=== PATIENT | female | born 1980 | race Caucasian/White ===

== ENCOUNTER 2016-10-19 08:28 | Emergency (ER) | payer OTHER, MEDICARE ==
--- NOTE | ~2016-10-19 | EKG ---
PATIENT: GUCCI LAW UNIT #: [id number] Ventricular Rate: 106 BPM Atrial Rate: 106 BPM P-R Interval: 138 ms QRS Duration: 74 ms Q-T Interval: 376 ms QTC Calculation(Bezet): 499 ms P [place]: 65 degrees Calculated R [place]: 55 degrees Calculated T [place]: 54 degrees Diagnosis Line: Sinus tachycardia Diagnosis Line: Otherwise normal ECG Diagnosis Line: When compared with ECG of 04-JUN-2009 12:25, Diagnosis Line: Nonspecific T wave abnormality no longer evident Diagnosis Line: in Lateral leads Diagnosis Line: Confirmed by RAIMUNDO MEMBRENO MD ([id number]) on Diagnosis Line: 10/21/2016 12:03:25 AM INTERPRETING MD: TEMI MARIA
--- NOTE | ~2016-10-19 | CT2 ---
[facility] A Service of [facility] RADIOLOGY TEXT RESULTS PATIENT: GUCCI LAW LOCATION: [facility] : 82 UNIT #: [id number] AGE: [address]: Cathryn Medrano SEX: F ORDER DR: [id number] [facility] [address] [place], [place] [address] [id number] E MR#: [id number] Acc #: [id number] NAME: GUCCI LAW. : 1980 SEX: F STUDY DATE/TIME: 10/19/2016 9:39 UNIT: [facility] ROOM: STUDY DESCRIPTION: CT Abd and Pelv W Cont Attending Physician: Cathryn Medrano P.A.-C. Ordering Physician: Cathryn Medrano P.A.-C. Primary Care Physician: No Primary Care Physician MEDICAL IMAGING REPORT This report is preliminary unless electronic signature is present EXAM CT of the abdomen and pelvis with contrast INDICATIONS 35-year-old female with abdominal pain since yesterday. History of pancreatitis and hepatitis C. TECHNIQUE CT scan of the abdomen and pelvis was performed following the administration of oral and IV contrast. Coronal and sagittal reformatted images were obtained. This CT exam was performed with one or more of the following radiation dose reduction techniques: automatic control, adjustment of mA and/or kV according to patient size, and iterative reconstruction. Comparison is made with 09/05/2016. FINDINGS The lung bases are clear. There is stable fatty infiltration of the liver. There is no intrahepatic bile duct dilatation. There is some pneumobilia noted. There is a stent within the common bile duct. There is a scant amount of pericholecystic fluid. There is no ascites. The spleen is upper normal in size. The kidneys are unremarkable. The adrenal glands are unremarkable. The pancreas is unremarkable. There is no ascites. PELVIS: The colon is unremarkable. Previously noted colonic thickening is significantly improved. There is no free fluid. The bone windows are unremarkable. IMPRESSION 1. Stable fatty infiltration of the liver. 2. Stent within the common bile duct. No evidence of biliary ductal dilatation. Small amount of associated pneumobilia. STS. [facility] A Service of [facility] RADIOLOGY TEXT RESULTS PATIENT: GUCCI LAW [id number] 82 UNIT #: [id number] AGE: [address]: Cathryn Medrano SEX: F ORDER DR: 3. Scant pericholecystic fluid. 4. No evidence of ascites. 5. Previously noted colonic wall thickening has significantly improved. Dictated by... Brayan Dowling M.D. THIS IS AN ELECTRONICALLY VERIFIED REPORT Brayan Dowling M.D. at 10/20/2016 10:42 AM EDWIN/eddi TD: 10/20/2016 03:30 JOB #: [id number] MEDICAL IMAGING REPORT COPY
--- NOTE | ~2016-10-19 | CR72 ---
[facility] A Service of [facility] RADIOLOGY TEXT RESULTS PATIENT: GUCCI LAW LOCATION: [facility] : 82 UNIT #: [id number] AGE: [address]: Cathryn Medrano SEX: F ORDER DR: [id number] [facility] [address] [place], [place] [address] [id number] E MR#: [id number] Acc #: [id number] NAME: GUCCI LAW. : 1980 SEX: F STUDY DATE/TIME: 10/19/2016 8:19 UNIT: [facility] ROOM: STUDY DESCRIPTION: CR Chest Single View Portable Attending Physician: Cathryn Medrano P.A.-C. Ordering Physician: Cathryn Medrano P.A.-C. Primary Care Physician: No Primary Care Physician MEDICAL IMAGING REPORT This report is preliminary unless electronic signature is present EXAM Portable chest HISTORY Feels like electricity going through her body with epigastric pain this morning. COMPARISON 06/04/2009. FINDINGS Portable view of the chest was obtained. The heart size and vascularity are normal and the lungs are clear and the bones are unremarkable. IMPRESSION No active disease. Dictated by... Jude Lenz M.D. THIS IS AN ELECTRONICALLY VERIFIED REPORT Jude Lenz M.D. at 10/20/2016 3:06 PM ANTONIETA/eddi TD: 10/20/2016 00:44 JOB #: [id number] MEDICAL IMAGING REPORT COPY
[~2016-10-19 08:28] MED LIST: ALDACTONE25 MG PO; CLEOCIN PO; DULOXETINE HCL60 MG PO; FAMOTIDINE PO; KEFLEX500 MG PO; LASIX20 MG PO; LIBRIUM25 M1 DOB; MULTI VITAMIN1 EACH PO; NICOTINE TRANSD21 MG EXT; NO MEDICATIONS; NORCO 10-325 TA1 TAB PO; PEN-VEE K PO; PHENERGAN25 M1 PO; PROTONIX PO; PROVERA PO; THIAMINE HCL100 M1 DOB; TRAMADOL HCL50 M1 PO; ULTRAM PO; VOLTAREN75 MG PO
[2016-10-19 08:34] LABS: POC - CKMB <1.0 ng/mL (0.0-7.9); POC - TROPONIN <0.05 ng/mL (<=0.05)
[2016-10-19 08:36] LABS: BASOPHIL# 0.1 X10e3 (0-0.3); EOSINOPHIL# 0.2 X10e3 (0-0.7); EOSINOPHIL% 2.6 % (0.0-7.0); HEMATOCRIT 31.7 % (35.0-45.0); HEMOGLOBIN 10.4 gm/dL (12.0-16.0); LYMPHOCYTE# 2.3 X10e3 (1.0-3.5); LYMPHOCYTE% 34.9 % (17.0-45.0); MEAN CELL VOLUME 100.5 FL (83-96); MEAN CORPUSCULAR HGB CONC 32.8 g/dL (30-36); MEAN PLATELET VOLUME 8.5 FL (6.5-11.5); MONOCYTE# 0.6 X10e3 (0-1.0); MONOCYTE% 9.8 % (3.0-12.0); NEUTROPHIL# 3.4 X10e3 (1.5-7.1); NEUTROPHIL% 51.7 % (40-75); PLATELET COUNT 133 X10e3 (140-420); RED BLOOD COUNT 3.15 X10e (3.90-5.30); RED CELL DISTRIBUTION WIDTH 14.8 % (11.0-15.5); WHITE BLOOD COUNT 6.5 X10e3 (4.0-10.5)
[2016-10-19 08:40] LABS: DIFF IND NO
[2016-10-19 08:42] LABS: AMPHETAMINE NEG (NEG); BARBITURATES NEG (NEG); BENZODIAZEPINES NEG (NEG); COCAINE NEG (NEG); MARIJUANA NEG (NEG); OPIATES NEG (NEG); TRICYCLIC ANTIDEPRESSANTS NEG (NEG); U METHADONE NEG (NEG)
[2016-10-19 09:08] LABS: ALBUMIN SERUM 3.2 g/dL (3.5-5.0); ALKALINE PHOSPHATASE 168 U/L (32-92); ALT (SGPT) 30 U/L (10-40); AMYLASE 25 U/L (0-46); AST (SGOT) 118 U/L (10-42); BILIRUBIN, DIRECT 0.3 mg/dL (0.0-0.2); BILIRUBIN,INDIRECT 0.7 mg/dL (0.0-0.9); BLOOD UREA NITROGEN 7 mg/dL (9-23); BUN/CREATININE RATIO 11.66; CALCIUM SERUM 8.2 mg/dL (8.4-10.2); CARBON DIOXIDE 26 mmol/L (22-31); CHLORIDE 101 mmol/L (100-111); CREATININE SERUM 0.6 mg/dL (0.6-1.4); GLOM FILT RATE Estimated ABOVE60 mL/min (>60); GLUCOSE FASTING 99 mg/dL (70-110); LIPASE 52 U/L (22-51); POTASSIUM 3.3 mmol/L (3.5-5.1); PROTEIN TOTAL SERUM 8.1 g/dL (6.0-8.3); SODIUM 137 mmol/L (135-145)
[2016-10-19 09:09] LABS: ALCOHOL BLOOD 340 mg/dL ([, 0])
[2016-10-19 10:21] LABS: POC - CKMB <1.0 ng/mL (0.0-7.9); POC - TROPONIN <0.05 ng/mL (<=0.05)
[2016-10-29] MEDS ORDERED: BENTYL20 MG PO (16:00)
[2017-05-01] MEDS ORDERED: PATIENT'S PHARMACY (17:31)
[2017-05-01] MEDS ORDERED: AMOXICILLIN875 MG PO (17:31)
[2017-05-01] MEDS ORDERED: ALDACTONE PO (17:32)
[2017-05-01] MEDS ORDERED: WELLBUTRIN100 MG PO (17:32)
[2017-05-01] MEDS ORDERED: LASIX20 MG PO ×2 (17:32→22:48)
[2017-05-01] MEDS ORDERED: BENTYL20 MG PO (22:40)
[2017-05-01] MEDS ORDERED: COMPAZINE10 M2 PO (22:42)
[2017-05-01] MEDS ORDERED: VITAMINE B-1100 MG PO (22:43)
[2017-05-01] MEDS ORDERED: PRILOSEC PO (22:43)
[2017-05-01] MEDS ORDERED: MULTI VITAMIN1 EACH PO (22:43)
[2017-05-01] MEDS ORDERED: OXYCODONE HCL10 MG PO (22:44)
[2017-05-01] MEDS ORDERED: POTASSIUM CHLO20 ME1 PO (22:45)
[2017-05-01] MEDS ORDERED: TESSALON PERLE100 M1 PO (22:45)
[2017-05-01] MEDS ORDERED: LACTULOSE10 GM/15 M PO (22:46)
[2017-05-01] MEDS ORDERED: DESYREL50 MG PO (22:46)
[2017-05-01] MEDS ORDERED: DEXAMETHASONE4 MG PO (22:47)
[2017-05-01] MEDS ORDERED: CITALOPRAM HBR40 MG PO (22:47)
[2017-05-01] MEDS ORDERED: LASIX PO (22:47)
[2017-05-01] MEDS ORDERED: ATIVAN2 MG PO (22:49)
[2017-05-01] MEDS ORDERED: SPIRONOLACTONE100 MG PO (22:50)
== END 2016-10-19 13:30 | disposition home or self-care (01) ==
LOC: CED 08:28
PROVIDERS: Physician Assistant
DX: R10.9 Unspecified abdominal pain (principal); R11.2 Nausea with vomiting, unspecified; F10.10 Alcohol abuse, uncomplicated; Z86.19 Personal history of other infectious and parasitic diseases; F19.10 Other psychoactive substance abuse, uncomplicated
CPT/HCPCS: 36415; 71010; 74177; 80048; 80076; 80307; 82150; 82553; 83690; 84484; 84703; 85025; 93005; 96361; 96374; 96375; 99284; G0480; J1885; J2405; Q9967

== ENCOUNTER 2016-10-29 22:09 | Inpatient (IN) | payer MEDICARE, OTHER ==
--- NOTE | ~2016-10-29 | DS ---
Unit #: [id number] #: [id number] Patient: GUCCI LAW [id number] [address] [address] [id number] I MR#: [id number] NAME: GUCCI LAW. ROOM: 548 Age: 35 Sex: F Admission Date: 10/29/2016 : 1980 Discharge Date: Attending Physician: Kayla Wells M.D. Primary Care Physician: Primary Care Physician No DISCHARGE SUMMARY DISCHARGE DIAGNOSES 1. Upper gastrointestinal bleed secondary to variceal bleed. 2. Anemia secondary to acute blood loss with chronic iron-deficiency anemia. 3. 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 4. Alcohol dependence with delirium tremens. 5. Polysubstance abuse including Xanax, cocaine and opiates. 6. Chronic pancreatitis secondary to alcohol. 7. Chronic gastropathy. 8. Severe protein malnutrition. 9. Hypocalcemia. 10. Thrombocytopenia secondary to alcohol abuse and cirrhosis. 11. History of hepatitis C. CONSULTANTS Dr. Jiang. PROCEDURES EGD which shows grade 3 esophageal varices, six bands were placed. Diffuse gastropathy present. DIAGNOSTIC STUDIES LABORATORY: Urine culture negative. Sodium 136, potassium 4.1, creatinine 0.6, AST 66, ALT 20, alkaline phosphatase 110, total bilirubin 1.0, albumin 2.1. WBC 4.8, hemoglobin 8.3, platelets 76. Ammonia 53. Phosphorus 3.6, magnesium 1.2. Urine toxicology screen positive for benzodiazepines and opiates. IMAGING: X-ray left hand shows degenerative changes. No fractures. ALLERGIES None. DISCHARGE MEDICATIONS 1. Bentyl 20 mg q.i.d. p.r.n. abdominal cramping. 2. Librium 25 mg p.o. b.i.d. 3. Lasix 20 daily. 4. Multivitamin one tablet daily. 5. Tramadol 50 mg q.6 h. p.r.n. pain. 6. Aldactone 50 mg two tablets in the morning. 7. Protonix 40 daily. 8. Thiamine 100 daily. HOSPITAL COURSE Unit #: [id number] #: [id number] Patient: GUCCI LAW This is a 35-year-old admitted because of vomiting of blood. Upper GI bleed secondary to variceal. Patient was seen by Dr. Jiang. Patient had EGD which shows esophageal varices grade 3, six bands were placed. She received blood transfusion. Currently hemoglobin is stable at 8.3, no active bleeding. I discussed with Dr. Apolinar chappell to discharge this patient. Anemia secondary to acute blood loss. She does have chronic anemia with iron deficiency also. The patient received blood transfusion. Severe protein malnutrition. Continue high-protein diet. Alcohol dependence with mild delirium tremens. Patient received alcohol withdrawal protocol with Ativan and Librium. Currently, she is not in DTs. She is alert and oriented x3, ambulating. The patient will be discharged on Librium for a few more days. Cirrhosis secondary to alcohol abuse and hepatitis C, currently stable. Follow outpatient gastroenterology. Polysubstance abuse. Advised to quit. I asked Dr. Christensen to see and also social staff worker is seeing this patient. According to Dr. Christensen, she can go home. cone worker is evaluating for any inpatient rehab . FOLLOWUP 1. Follow with family physician in one week time. 2. Follow with [facility] upon discharge as an outpatient. cone worker to see the patient before discharge. Discharge time taken is 35 minutes. Dictated by... Adrián Pimentel/rafael TD: 11/01/2016 16:49 JOB #: [id number] DISCHARGE SUMMARY Page 1 of 1 X Kayla Wells MD X DISCHARGE SUMMARY
--- NOTE | ~2016-10-29 | CO ---
Unit #: [id number] #: [id number] Patient: GUCCI LAW [id number] [address] [address] [id number] I MR#: [id number] NAME: GUCCI LAW. ROOM: 548 Age: 35 Sex: F Admission Date: 10/29/2016 : 1980 Attending Physician: Kayla Wells M.D. Primary Care Physician: No Primary Care Physician Consultation Date: 10/30/2016 CONSULTATION REPORT REASON FOR CONSULTATION Critical care management. CHIEF COMPLAINT GI bleed. HISTORY OF PRESENT ILLNESS A 35-year-old female with past medical history of likely COPD, recurrent pancreatitis, cirrhosis, hepatitis, who presents with a complaint of nausea, vomiting and abdominal pain, found to be in significant hypertension and has upper GI bleed and had an EGD done with multiple banding. I am seeing the patient at bedside complaining of abdominal pain. She denies any shortness of breath. REVIEW OF SYSTEMS Positive for pallor, no edema, no cyanosis, no jaundice and the rest is as per the history of present illness. The rest of 12-point review of system has been reviewed and is negative. PAST MEDICAL HISTORY 1. Cirrhosis. 2. Chronic pancreatitis. 3. History of polysubstance abuse. 4. Alcohol use. 5. Likely COPD. SOCIAL HISTORY Drinks alcohol and smokes one pack per day and uses Percocet. PHYSICAL EXAMINATION VITAL SIGNS: Temperature 98. Pulse 122. Respiration 16. Blood pressure is 80/40. NEUROLOGICAL: Awake, alert and oriented. No neuro deficit. HEENT: PERRLA. EOMI. NECK: Supple. No JVD. CHEST: Bilateral air entry. Bilateral mild rhonchi. GI: Nontender. Soft. Bowel sounds positive. EXTREMITIES: No edema. SKIN: No rashes. No ulcer. LYMPHATIC: No lymphadenopathy. DIAGNOSTIC STUDIES LABORATORY: Labs have been reviewed. Unit #: [id number] #: [id number] Patient: GUCCI LAW IMAGING: Imaging has been reviewed. ASSESSMENT 1. Acute blood loss anemia. 2. Acute gastrointestinal bleed. 3. Hepatitis C. 4. Cirrhosis. 5. Likely chronic obstructive pulmonary disease. PLAN Plan is to continue monitoring hemoglobin and hematocrit, transfuse as needed, GI and DVT prophylaxis, ICU protocol, PPI and octreotide. Please see orders for detailed plan. Thank you very much for this consultation. We will continue to follow the patient. Dictated by... Adrián Calhoun TD: 11/01/2016 21:44 JOB #: [id number] CONSULTATION REPORT Page 1 of 1 X Keisha Richardson MD X CONSULTATION REPORT
--- NOTE | ~2016-10-29 | OR ---
Unit #: [id number] #: [id number] Patient: GUCCI LAW [id number] [address] [address] [id number] Inocente MR#: [id number] NAME: GUCCI LAW. ROOM: [facility] Date of Procedure: 10/30/2016 Admission Date: 10/29/2016 Surgeon: Alex Jiang M.D. : 1980 Attending Physician: Kayla Wells M.D. OPERATIVE REPORT INDICATIONS FOR PROCEDURE Esophagogastroduodenoscopy with variceal banding, esophagogastroduodenoscopy with foreign body, common bile duct stent removal. INDICATIONS FOR PROCEDURE The patient presented with severe upper GI bleed. She has a history of cirrhosis from continued drinking and hepatitis C. MEDICATIONS Monitored anesthesia. POSTOPERATIVE FINDINGS 1. Grade 3 esophageal varices. Six bands were placed. 2. Diffuse gastropathy. There were some hemoclips noted in the gastric body from previous endoscopy possibly at [facility]. 3. There was a CBD stent seen extending out of the ampulla, which was removed using a snare during the procedure. PLAN Continue with Protonix and Sandostatin drip. Supportive care. DESCRIPTION OF PROCEDURE The patient was explained of the procedure, risks, and benefits. Endo team was brought to the ICU. EGD scope was passed down the mouth into the esophagus, stomach, duodenum, and distal duodenum. Stent was seen extending out of the ampulla. Using a snare, I was able to pull it out in one piece. Gently, the scope was then pulled back in the stomach. Findings as described. Hemoclips noted. The scope was then pulled back in the esophagus. Findings as described. I reintroduced the scope with multi-shooter and placed 6 bands starting with a yi spot in distal esophagus. She tolerated the procedure very well. No major complications were seen. Dictated by... Adrián Lovell/drake Unit #: [id number] #: [id number] Patient: GUCCI LAW TD: 10/30/2016 08:06 JOB #: [id number] OPERATIVE REPORT Page 1 of 1 X Alex Jiang MD PROCEDURE OPERATIVE NOTE
--- NOTE | ~2016-10-29 | CR141 ---
[facility] A Service [facility] RADIOLOGY TEXT RESULTS PATIENT: GUCCI LAW LOCATION: [place] [id number] : [birth year] UNIT #: [id number] AGE: [address]: Kayla Wells MD SEX: F ORDER DR: [id number] [place] [address] [facility]. [place], [place] [address] [id number] I MR#: [id number] Acc #: [id number] NAME: GUCCI LAW. : 1980 SEX: F STUDY DATE/TIME: 10/29/2016 23:56 UNIT: [facility] ROOM: [facility] STUDY DESCRIPTION: CR Hand Min 3 Views Lt Attending Physician: Kayla Wells M.D. Ordering Physician: Ambreen Winter M.D. Primary Care Physician: Primary Care Physician No MEDICAL IMAGING REPORT This report is preliminary unless electronic signature is present EXAM Left hand series 10/29/2016 HISTORY 35-year-old female in the ED complaining of fifth digit pain after injury tonight. Smashed hand with object at work this evening. FINDINGS 3-view left hand series. FINDINGS No fracture, dislocation or other acute osseous abnormality is demonstrated involving the left fifth finger or the remainder of the left hand. There is evidence of periarticular erosive changes and secondary degenerative arthropathy at the fifth DIP joint. No similar arthropathic changes are seen elsewhere within the left hand. This may be the result of old trauma, correlate clinically. IMPRESSION 1. No acute osseous abnormality. 2. Erosive and degenerative arthropathic changes at the fifth DIP joint. Dictated by... Mervin Castano M.D. THIS IS AN ELECTRONICALLY VERIFIED REPORT Mervin Castano M.D. at 10/30/2016 10:06 PM SHARITA/dale TD: 10/30/2016 13:06 [facility] A Service [facility] RADIOLOGY TEXT RESULTS PATIENT: GUCCI LAW LOCATION: [facility] [id number] : 84 UNIT #: [id number] AGE: [address]: Kayla Wells MD SEX: F ORDER DR: MEAGHAN #: [id number] MEDICAL IMAGING REPORT Page 1 of 1 COPY
--- NOTE | ~2016-10-29 | HP ---
Unit #: [id number] #: [id number] Patient: GUCCI LAW [id number] [address] [place], [place] [address] [id number] I MR#: [id number] NAME: GUCCI LAW. ROOM: [address] Age: 35 Sex: F Admission Date: 10/29/2016 : 1980 Attending Physician: Rain Castillo M.D. HISTORY AND PHYSICAL CHIEF COMPLAINT Upper GI bleed with hypotension and significant anemia. HISTORY OF PRESENT ILLNESS This 35-year-old female with polysubstance abuse, cirrhosis, hepatitis C, and recurrent pancreatitis, is admitted for an upper GI bleed. The patient was in her usual state of health until two weeks prior to admission when she began to experience hematemesis after eating, along with melena. She states that she was recently hospitalized at [facility] for DTs and upper GI bleed and underwent an EGD. She has been drinking two pints of liquor daily. Last drink was this afternoon. She had worsening hematemesis with blood clots and lightheadedness. She was brought to this emergency department this evening with a blood pressure of 80/40 and tachycardic with a large amount of hematemesis which included blood clots. She was bolused with two liters of fluid, started on a Protonix drip, along with an octreotide drip, and was transfused two units of O negative blood for active bleeding and hypotension. Her last ERCP performed September 17, 2016, by Dr. Jiang showed evidence of early varices and chronic gastropathy. Also noted were irregular dilated pancreatic duct suggestive of chronic pancreatitis and a distal common bile duct stricture. At this time, the patient is complaining of quite a bit of generalized abdominal discomfort. Her blood pressure has improved. She is quite tremulous on exam. PAST MEDICAL HISTORY 1. Cirrhosis secondary to hepatitis C and ongoing alcohol abuse. 2. Chronic pancreatitis with admissions in the past for alcohol-induced pancreatitis. Again, last EGD September 17, 2016, showed early esophageal varices and chronic gastropathy. Irregular dilated pancreatic duct with multiple visible side branches suggesting chronic pancreatitis. Distal common bile duct stricture, status post sphincterotomy and balloon extraction which was negative. A stent was placed. 3. History of polysubstance abuse including Xanax, cocaine, and opiates. Patient mainly abuses alcohol however. 4. History of alcohol abuse and DTs. 5. Wrist surgery. 6. Oral surgery. ALLERGIES No known drug allergies. HOME MEDICATIONS Unit #: [id number] #: [id number] Patient: GUCCI LAW Patient was taking Lasix, Aldactone, and Protonix but ran out of these medicines about four days ago. FAMILY HISTORY COPD, diabetes mellitus, and brain cancer. SOCIAL HISTORY The patient lives with her son and male friend. She drinks two pints of liquor on a daily basis. She smokes one pack per day of tobacco and recently used some illegal Percocet. REVIEW OF SYSTEMS Notable for abdominal pain, hematemesis, melena, lightheadedness, hepatitis C, cirrhosis with ascites, alcohol abuse, polysubstance abuse, DTs, and above-mentioned surgeries. All other systems were reviewed and are otherwise negative. PHYSICAL EXAMINATION GENERAL: Anxious, tremulous, 35-year-old female. VITAL SIGNS: Temperature 98.1, pulse 122, respirations 22, initial blood pressure 80/40, current blood pressure 113/75 after two units of O negative blood, and O2 saturation 98% on room air. HEENT: Eyes PERRLA. Extraocular muscles are intact. Pharynx is benign. NECK: Supple without adenopathy or thyromegaly. CHEST: Clear. CARDIAC: Tachy S1 and S2 without definite murmur. ABDOMEN: Bowel sounds are present. Ascites/fluid wave noted. Generalized abdominal tenderness without rebound or guarding. Hepatomegaly noted on exam. EXTREMITIES: Without edema. NEUROLOGIC: Patient is anxious and tremulous. DIAGNOSTIC STUDIES ADMISSION LABORATORY: Hematocrit is 19.2, down from 31.7 ten days ago, MCV 96.5, and normal white count and platelet count. INR is 1.3 and PTT is 30. SMA-12 with glucose 122, calcium 7.5, protein 5.7, albumin 2.3, AST 86, and alkaline phosphatase 113. Alcohol 165. ASSESSMENT 1. Upper gastrointestinal bleed with hypotension and profound anemia. The patient does have a history of early varices and chronic gastropathy noted on ERCP in September. 2. Alcohol abuse with evidence of alcohol withdrawal. 3. Hepatitis C. 4. Cirrhosis with ascites secondary to hepatitis C and alcohol abuse. 5. Polysubstance abuse. 6. Chronic pancreatitis. PLANS 1. IV fluids. 2. Serial hemoglobin and hematocrit and transfuse. Will obtain a stat CBC now that patient received two units of packed red blood cells. 3. Vitamins and benzodiazepines. 4. Obtain urine toxicology screen and urinalysis. Urine toxicology screen will be positive for benzodiazepines as patient will receive some Ativan shortly. 5. Gentle pain control. 6. Gastroenterology consultation. Dr. Jiang was called by the ER Unit #: [id number] #: [id number] Patient: GUCCI LAW physician. 7. Emergency Care Attendant consult. 8. SCDs for DVT prophylaxis. 9. Old records. 10. Proton pump inhibitor drip and octreotide drip will be continued. Critical care time spent in evaluating this patient was 40 minutes. Dictated by Adrián Medley/babs TD: 10/29/2016 22:59 JOB #: [id number] HISTORY AND PHYSICAL Page 1 of 1 X Rain Castillo MD X HISTORY AND PHYSICAL
[2016-10-29 20:54] LABS: BASOPHIL# 0.1 X10e3 (0-0.3); BASOPHIL% 0.7 % (0-2.5); EOSINOPHIL# 0.1 X10e3 (0-0.7); EOSINOPHIL% 1.1 % (0.0-7.0); HEMATOCRIT 19.2 % (35.0-45.0); LYMPHOCYTE# 3.7 X10e3 (1.0-3.5); LYMPHOCYTE% 35.6 % (17.0-45.0); MEAN CELL VOLUME 96.5 FL (83-96); MEAN CORPUSCULAR HEMOGLOBIN 31.5 PG (28-34); MEAN CORPUSCULAR HGB CONC 32.7 g/dL (30-36); MEAN PLATELET VOLUME 8.9 FL (6.5-11.5); MONOCYTE# 1.4 X10e3 (0-1.0); MONOCYTE% 13.5 % (3.0-12.0); NEUTROPHIL# 5.1 X10e3 (1.5-7.1); NEUTROPHIL% 49.1 % (40-75); PLATELET COUNT 144 X10e3 (140-420); RED BLOOD COUNT 1.98 X10e (3.90-5.30); RED CELL DISTRIBUTION WIDTH 16.7 % (11.0-15.5); WHITE BLOOD COUNT 10.3 X10e3 (4.0-10.5)
[2016-10-29 21:04] LABS: DIFF IND YES; HEMOGLOBIN 6.3 gm/dL (12.0-16.0)
[2016-10-29 21:07] LABS: ALBUMIN SERUM 2.3 g/dL (3.5-5.0); ALKALINE PHOSPHATASE 113 U/L (32-92); ALT (SGPT) 23 U/L (10-40); AST (SGOT) 86 U/L (10-42); BILIRUBIN, DIRECT 0.2 mg/dL (0.0-0.2); BILIRUBIN,INDIRECT 0.4 mg/dL (0.0-0.9); BILIRUBIN,TOTAL 0.6 mg/dL (0.2-2.0); BLOOD UREA NITROGEN 14 mg/dL (9-23); CALCIUM SERUM 7.5 mg/dL (8.4-10.2); CARBON DIOXIDE 23 mmol/L (22-31); CHLORIDE 105 mmol/L (100-111); CREATININE SERUM 0.5 mg/dL (0.6-1.4); GLOM FILT RATE Estimated ABOVE60 mL/min (>60); GLUCOSE FASTING 122 mg/dL (70-110); POTASSIUM 3.5 mmol/L (3.5-5.1); PROTEIN TOTAL SERUM 5.7 g/dL (6.0-8.3); SODIUM 139 mmol/L (135-145)
[2016-10-29 21:17] LABS: ALCOHOL BLOOD 165 mg/dL (0)
[2016-10-29 21:35] LABS: ANISOCYTOSIS MOD; PLATELET ESTIMATE NORMAL (NORMAL); POIKILOCYTOSIS SL
[2016-10-29 21:37] LABS: INR 1.3
[~2016-10-29 22:09] MED LIST changes: +BENTYL20 MG PO
[2016-10-29 23:33] LABS: URINE SOURCE CATH
[2016-10-29 23:38] LABS: URINE APPEARANCE CLEAR; URINE BILIRUBIN NEG (NEG); URINE BLOOD NEG (NEG); URINE COLOR YELLOW; URINE GLUCOSE NEG (NEG); URINE KETONE NEG (NEG); URINE LEUKOCYTE ESTERASE NEG (NEG); URINE NITRATE NEG (NEG); URINE PH 6.5 (5-8); URINE PROTEIN NEG (NEG); URINE SPECIFIC GRAVITY 1.013 (1.003-1.035); URINE UROBILINOGEN 0.2 MG/DL (NEG)
[2016-10-29 23:47] LABS: AMPHETAMINE NEG (NEG); BARBITURATES NEG (NEG); BENZODIAZEPINES POS (NEG); COCAINE NEG (NEG); MARIJUANA NEG (NEG); OPIATES POS (NEG); TRICYCLIC ANTIDEPRESSANTS NEG (NEG); U METHADONE NEG (NEG)
[2016-10-30 00:13] LABS: BASOPHIL# 0.1 X10e3 (0-0.3); EOSINOPHIL% 0.7 % (0.0-7.0); HEMATOCRIT 24.6 % (35.0-45.0); LYMPHOCYTE# 1.6 X10e3 (1.0-3.5); LYMPHOCYTE% 23.6 % (17.0-45.0); MEAN CORPUSCULAR HEMOGLOBIN 30.6 PG (28-34); MEAN CORPUSCULAR HGB CONC 32.9 g/dL (30-36); MEAN PLATELET VOLUME 9.1 FL (6.5-11.5); MONOCYTE# 0.7 X10e3 (0-1.0); MONOCYTE% 10.7 % (3.0-12.0); NEUTROPHIL# 4.4 X10e3 (1.5-7.1); RED BLOOD COUNT 2.65 X10e (3.90-5.30); RED CELL DISTRIBUTION WIDTH 16.4 % (11.0-15.5); WHITE BLOOD COUNT 6.9 X10e3 (4.0-10.5)
[2016-10-30 00:33] LABS: HEMOGLOBIN 8.1 gm/dL (12.0-16.0); MEAN CELL VOLUME 93.1 FL (83-96)
[2016-10-30 00:34] LABS: DIFF IND YES; PLATELET COUNT 94 X10e3 (140-420)
[2016-10-30 00:55] LABS: ANISOCYTOSIS SL; PLATELET ESTIMATE DECREASED (NORMAL)
[2016-10-30 00:56] LABS: HYPOCHROMIA SL; POLYCHROMASIA SL
[2016-10-30 03:56] LABS: BASOPHIL% 0.6 % (0-2.5); EOSINOPHIL# 0.1 X10e3 (0-0.7); EOSINOPHIL% 1.1 % (0.0-7.0); HEMATOCRIT 18.5 % (35.0-45.0); LYMPHOCYTE# 1.5 X10e3 (1.0-3.5); LYMPHOCYTE% 32.5 % (17.0-45.0); MEAN CELL VOLUME 92.5 FL (83-96); MEAN CORPUSCULAR HEMOGLOBIN 30.8 PG (28-34); MEAN CORPUSCULAR HGB CONC 33.3 g/dL (30-36); MEAN PLATELET VOLUME 9.3 FL (6.5-11.5); MONOCYTE# 0.6 X10e3 (0-1.0); MONOCYTE% 13.7 % (3.0-12.0); NEUTROPHIL# 2.3 X10e3 (1.5-7.1); NEUTROPHIL% 52.1 % (40-75); WHITE BLOOD COUNT 4.5 X10e3 (4.0-10.5)
[2016-10-30 03:57] LABS: HEMOGLOBIN 6.2 gm/dL (12.0-16.0); PLATELET COUNT 65 X10e3 (140-420)
[2016-10-30 03:58] LABS: DIFF IND NO
[2016-10-30 04:18] LABS: ALBUMIN SERUM 1.8 g/dL (3.5-5.0); ALKALINE PHOSPHATASE 80 U/L (32-92); ALT (SGPT) 19 U/L (10-40); AMYLASE 9 U/L (0-46); AST (SGOT) 62 U/L (10-42); BILIRUBIN,TOTAL 1.8 mg/dL (0.2-2.0); BLOOD UREA NITROGEN 13 mg/dL (9-23); CARBON DIOXIDE 22 mmol/L (22-31); CHLORIDE 113 mmol/L (100-111); CREATININE SERUM 0.5 mg/dL (0.6-1.4); GLOM FILT RATE Estimated ABOVE60 mL/min (>60); GLUCOSE FASTING 145 mg/dL (70-110); LIPASE 17 U/L (22-51); POTASSIUM 4.2 mmol/L (3.5-5.1); PROTEIN TOTAL SERUM 4.2 g/dL (6.0-8.3); SODIUM 141 mmol/L (135-145)
[2016-10-30 09:47] LABS: BASOPHIL% 1.2 % (0-2.5); EOSINOPHIL# 0.1 X10e3 (0-0.7); EOSINOPHIL% 1.6 % (0.0-7.0); HEMATOCRIT 24.5 % (35.0-45.0); HEMOGLOBIN 7.8 gm/dL (12.0-16.0); LYMPHOCYTE# 1.1 X10e3 (1.0-3.5); LYMPHOCYTE% 28.3 % (17.0-45.0); MEAN CELL VOLUME 93.8 FL (83-96); MEAN CORPUSCULAR HEMOGLOBIN 29.9 PG (28-34); MEAN CORPUSCULAR HGB CONC 31.8 g/dL (30-36); MEAN PLATELET VOLUME 8.8 FL (6.5-11.5); MONOCYTE# 0.4 X10e3 (0-1.0); MONOCYTE% 10.9 % (3.0-12.0); NEUTROPHIL# 2.3 X10e3 (1.5-7.1); RED BLOOD COUNT 2.61 X10e (3.90-5.30); RED CELL DISTRIBUTION WIDTH 16.9 % (11.0-15.5)
[2016-10-30 09:48] LABS: DIFF IND NO; PLATELET COUNT 82 X10e3 (140-420)
[2016-10-30 09:49] LABS: INR 1.4; PARTIAL THROMBOPLASTIN TIME 34.3 SECONDS (23.5-31.3); PROTHROMBIN TIME (PATIENT) 14.7 SECONDS (9.6-11.5)
[2016-10-30 10:29] LABS: MAGNESIUM 1.2 mg/dL (1.6-3.0); PHOSPHOROUS 3.6 mg/dL (2.5-4.6)
[2016-10-30 12:50] LABS: HEMATOCRIT 28.5 % (35.0-45.0); HEMOGLOBIN 9.4 gm/dL (12.0-16.0)
[2016-10-30 18:30] LABS: HEMATOCRIT 28.7 % (35.0-45.0); HEMOGLOBIN 9.6 gm/dL (12.0-16.0)
[2016-10-31 01:48] LABS: HEMATOCRIT 28.3 % (35.0-45.0); HEMOGLOBIN 9.2 gm/dL (12.0-16.0)
[2016-10-31 04:21] LABS: BASOPHIL% 1.3 % (0-2.5); EOSINOPHIL# 0.1 X10e3 (0-0.7); EOSINOPHIL% 2.5 % (0.0-7.0); HEMATOCRIT 25.8 % (35.0-45.0); LYMPHOCYTE# 1.1 X10e3 (1.0-3.5); LYMPHOCYTE% 27.6 % (17.0-45.0); MEAN CELL VOLUME 90.6 FL (83-96); MEAN CORPUSCULAR HEMOGLOBIN 29.9 PG (28-34); MEAN PLATELET VOLUME 9.4 FL (6.5-11.5); MONOCYTE# 0.5 X10e3 (0-1.0); MONOCYTE% 13.6 % (3.0-12.0); NEUTROPHIL# 2.1 X10e3 (1.5-7.1); PLATELET COUNT 65 X10e3 (140-420); RED BLOOD COUNT 2.85 X10e (3.90-5.30); WHITE BLOOD COUNT 3.9 X10e3 (4.0-10.5)
[2016-10-31 04:22] LABS: DIFF IND NO; HEMOGLOBIN 8.5 gm/dL (12.0-16.0)
[2016-10-31 04:44] LABS: ALBUMIN SERUM 2.2 g/dL (3.5-5.0); ALKALINE PHOSPHATASE 102 U/L (32-92); ALT (SGPT) 18 U/L (10-40); AST (SGOT) 63 U/L (10-42); BILIRUBIN,TOTAL 1.2 mg/dL (0.2-2.0); BLOOD UREA NITROGEN 9 mg/dL (9-23); CALCIUM SERUM 7.7 mg/dL (8.4-10.2); CARBON DIOXIDE 26 mmol/L (22-31); CHLORIDE 106 mmol/L (100-111); CREATININE SERUM 0.6 mg/dL (0.6-1.4); GLOM FILT RATE Estimated ABOVE60 mL/min (>60); GLUCOSE FASTING 122 mg/dL (70-110); MAGNESIUM 1.6 mg/dL (1.6-3.0); POTASSIUM 3.9 mmol/L (3.5-5.1); PROTEIN TOTAL SERUM 5.2 g/dL (6.0-8.3); SODIUM 136 mmol/L (135-145)
[2016-10-31 05:56] LABS: INR 1.3; PROTHROMBIN TIME (PATIENT) 13.4 SECONDS (9.6-11.5)
[2016-10-31 13:27] LABS: HEMATOCRIT 26.6 % (35.0-45.0); HEMOGLOBIN 8.6 gm/dL (12.0-16.0)
[2016-10-31 18:25] LABS: HEMATOCRIT 26.8 % (35.0-45.0); HEMOGLOBIN 8.8 gm/dL (12.0-16.0)
[2016-11-01 06:02] LABS: BASOPHIL% 0.7 % (0-2.5); EOSINOPHIL# 0.1 X10e3 (0-0.7); EOSINOPHIL% 2.2 % (0.0-7.0); HEMATOCRIT 25.5 % (35.0-45.0); HEMOGLOBIN 8.3 gm/dL (12.0-16.0); LYMPHOCYTE# 1.1 X10e3 (1.0-3.5); LYMPHOCYTE% 22.6 % (17.0-45.0); MEAN CELL VOLUME 91.3 FL (83-96); MEAN CORPUSCULAR HEMOGLOBIN 29.8 PG (28-34); MEAN CORPUSCULAR HGB CONC 32.6 g/dL (30-36); MEAN PLATELET VOLUME 10.2 FL (6.5-11.5); MONOCYTE# 0.5 X10e3 (0-1.0); MONOCYTE% 10.5 % (3.0-12.0); NEUTROPHIL# 3.1 X10e3 (1.5-7.1); PLATELET COUNT 76 X10e3 (140-420); RED BLOOD COUNT 2.79 X10e (3.90-5.30); RED CELL DISTRIBUTION WIDTH 15.7 % (11.0-15.5); WHITE BLOOD COUNT 4.8 X10e3 (4.0-10.5)
[2016-11-01 06:03] LABS: DIFF IND NO
[2016-11-01 06:14] LABS: ALBUMIN SERUM 2.1 g/dL (3.5-5.0); ALKALINE PHOSPHATASE 110 U/L (32-92); ALT (SGPT) 20 U/L (10-40); AST (SGOT) 66 U/L (10-42); BLOOD UREA NITROGEN <5 mg/dL (9-23); BUN/CREATININE RATIO 8.33; CALCIUM SERUM 7.5 mg/dL (8.4-10.2); CARBON DIOXIDE 25 mmol/L (22-31); CHLORIDE 106 mmol/L (100-111); CREATININE SERUM 0.6 mg/dL (0.6-1.4); GLOM FILT RATE Estimated 119.8 mL/min (>60); GLUCOSE FASTING 111 mg/dL (70-110); POTASSIUM 4.1 mmol/L (3.5-5.1); PROTEIN TOTAL SERUM 5.1 g/dL (6.0-8.3); SODIUM 136 mmol/L (135-145)
[2016-11-01] MEDS ORDERED: LIBRIUM25 MG PO (17:30)
[2016-11-01] MEDS ORDERED: MULTI-VITAMIN1 EAC1 PO (17:31)
[2016-11-01] MEDS ORDERED: THIAMINE HCL100 MG PO (17:32)
[2017-05-01] MEDS ORDERED: AMOXICILLIN875 MG PO (17:31)
[2017-05-01] MEDS ORDERED: PATIENT'S PHARMACY (17:31)
[2017-05-01] MEDS ORDERED: ALDACTONE PO (17:32)
[2017-05-01] MEDS ORDERED: LASIX20 MG PO ×2 (17:32→22:48)
[2017-05-01] MEDS ORDERED: WELLBUTRIN100 MG PO (17:32)
[2017-05-01] MEDS ORDERED: BENTYL20 MG PO (22:40)
[2017-05-01] MEDS ORDERED: COMPAZINE10 M2 PO (22:42)
[2017-05-01] MEDS ORDERED: VITAMINE B-1100 MG PO (22:43)
[2017-05-01] MEDS ORDERED: PRILOSEC PO (22:43)
[2017-05-01] MEDS ORDERED: MULTI VITAMIN1 EACH PO (22:43)
[2017-05-01] MEDS ORDERED: OXYCODONE HCL10 MG PO (22:44)
[2017-05-01] MEDS ORDERED: TESSALON PERLE100 M1 PO (22:45)
[2017-05-01] MEDS ORDERED: POTASSIUM CHLO20 ME1 PO (22:45)
[2017-05-01] MEDS ORDERED: LACTULOSE10 GM/15 M PO (22:46)
[2017-05-01] MEDS ORDERED: DESYREL50 MG PO (22:46)
[2017-05-01] MEDS ORDERED: DEXAMETHASONE4 MG PO (22:47)
[2017-05-01] MEDS ORDERED: LASIX PO (22:47)
[2017-05-01] MEDS ORDERED: CITALOPRAM HBR40 MG PO (22:47)
[2017-05-01] MEDS ORDERED: ATIVAN2 MG PO (22:49)
[2017-05-01] MEDS ORDERED: SPIRONOLACTONE100 MG PO (22:50)
== END 2016-11-01 18:01 | disposition home or self-care (01) | DRG 432 ==
LOC: CED 22:09 → CEDOF 22:31 → CICCU3 23:31 → C5B 10-31 16:46
PROVIDERS: Emergency Medicine; Internal Medicine
PROC: 30233N1 Transfusion of Nonautologous Red Blood Cells into Peripheral Vein, Percutaneous Approach (ICD-10-PCS; principal; 2016-10-29)
PROC: 0FPB8DZ Removal of Intraluminal Device from Hepatobiliary Duct, Via Natural or Artificial Opening Endoscopic (ICD-10-PCS; 2016-10-30 06:49)
PROC: 06L34CZ Occlusion of Esophageal Vein with Extraluminal Device, Percutaneous Endoscopic Approach (ICD-10-PCS; 2016-10-30 06:49)
DX: K70.30 Alcoholic cirrhosis of liver without ascites (principal); I85.11 Secondary esophageal varices with bleeding; E43 Unspecified severe protein-calorie malnutrition; G93.41 Metabolic encephalopathy; F10.231 Alcohol dependence with withdrawal delirium; D69.59 Other secondary thrombocytopenia; D62 Acute posthemorrhagic anemia; K86.0 Alcohol-induced chronic pancreatitis; E83.51 Hypocalcemia; F17.210 Nicotine dependence, cigarettes, uncomplicated; K31.9 Disease of stomach and duodenum, unspecified; F11.10 Opioid abuse, uncomplicated; F14.10 Cocaine abuse, uncomplicated; F13.10 Sedative, hypnotic or anxiolytic abuse, uncomplicated; Z86.19 Personal history of other infectious and parasitic diseases; Z83.3 Family history of diabetes mellitus; Z80.8 Family history of malignant neoplasm of other organs or systems
CPT/HCPCS: 36430; 73130; 80048; 80053; 80076; 80307; 81003; 82140; 82150; 83690; 83735; 84100; 84703; 85014; 85018; 85025; 85610; 85730; 86850; 86900; 86901; 86922; 86923; 87086; 94760; 96360; 96361; 99291; C9113; G0480; J1956; J2060; J2250; J2270; J2354; J2405; J2550; J3010; J3411; J3475; P9016; P9035

== ENCOUNTER 2016-11-07 03:14 | Emergency (ER) | payer OTHER ==
[2016-11-07 02:28] LABS: BASOPHIL# 0.1 X10e3 (0-0.3); BASOPHIL% 0.9 % (0-2.5); EOSINOPHIL# 0.1 X10e3 (0-0.7); EOSINOPHIL% 1.3 % (0.0-7.0); HEMATOCRIT 33.3 % (35.0-45.0); HEMOGLOBIN 10.7 gm/dL (12.0-16.0); LYMPHOCYTE# 2.2 X10e3 (1.0-3.5); LYMPHOCYTE% 25.4 % (17.0-45.0); MEAN CELL VOLUME 91.8 FL (83-96); MEAN CORPUSCULAR HEMOGLOBIN 29.6 PG (28-34); MEAN CORPUSCULAR HGB CONC 32.3 g/dL (30-36); MEAN PLATELET VOLUME 9.5 FL (6.5-11.5); MONOCYTE# 0.5 X10e3 (0-1.0); MONOCYTE% 5.8 % (3.0-12.0); NEUTROPHIL# 5.7 X10e3 (1.5-7.1); NEUTROPHIL% 66.6 % (40-75); PLATELET COUNT 178 X10e3 (140-420); RED BLOOD COUNT 3.63 X10e (3.90-5.30); RED CELL DISTRIBUTION WIDTH 16.6 % (11.0-15.5); WHITE BLOOD COUNT 8.6 X10e3 (4.0-10.5)
[2016-11-07 02:29] LABS: DIFF IND NO
[2016-11-07 02:54] LABS: ALBUMIN SERUM 2.6 g/dL (3.5-5.0); BILIRUBIN, DIRECT 0.4 mg/dL (0.0-0.2); BILIRUBIN,INDIRECT 0.4 mg/dL (0.0-0.9); BILIRUBIN,TOTAL 0.8 mg/dL (0.2-2.0); CALCIUM SERUM 7.8 mg/dL (8.4-10.2); CREATININE SERUM 0.6 mg/dL (0.6-1.4); GLOM FILT RATE Estimated 119.8 mL/min (>60); POTASSIUM 3.8 mmol/L (3.5-5.1); PROTEIN TOTAL SERUM 6.9 g/dL (6.0-8.3)
[~2016-11-07 03:14] MED LIST changes: +LIBRIUM25 MG PO; +MULTI-VITAMIN1 EAC1 PO; +THIAMINE HCL100 MG PO
[2017-05-01] MEDS ORDERED: AMOXICILLIN875 MG PO (17:31)
[2017-05-01] MEDS ORDERED: PATIENT'S PHARMACY (17:31)
[2017-05-01] MEDS ORDERED: LASIX20 MG PO ×2 (17:32→22:48)
[2017-05-01] MEDS ORDERED: WELLBUTRIN100 MG PO (17:32)
[2017-05-01] MEDS ORDERED: ALDACTONE PO (17:32)
[2017-05-01] MEDS ORDERED: BENTYL20 MG PO (22:40)
[2017-05-01] MEDS ORDERED: COMPAZINE10 M2 PO (22:42)
[2017-05-01] MEDS ORDERED: PRILOSEC PO (22:43)
[2017-05-01] MEDS ORDERED: MULTI VITAMIN1 EACH PO (22:43)
[2017-05-01] MEDS ORDERED: VITAMINE B-1100 MG PO (22:43)
[2017-05-01] MEDS ORDERED: OXYCODONE HCL10 MG PO (22:44)
[2017-05-01] MEDS ORDERED: POTASSIUM CHLO20 ME1 PO (22:45)
[2017-05-01] MEDS ORDERED: TESSALON PERLE100 M1 PO (22:45)
[2017-05-01] MEDS ORDERED: DESYREL50 MG PO (22:46)
[2017-05-01] MEDS ORDERED: LACTULOSE10 GM/15 M PO (22:46)
[2017-05-01] MEDS ORDERED: DEXAMETHASONE4 MG PO (22:47)
[2017-05-01] MEDS ORDERED: LASIX PO (22:47)
[2017-05-01] MEDS ORDERED: CITALOPRAM HBR40 MG PO (22:47)
[2017-05-01] MEDS ORDERED: ATIVAN2 MG PO (22:49)
[2017-05-01] MEDS ORDERED: SPIRONOLACTONE100 MG PO (22:50)
== END 2016-11-07 05:31 | disposition home or self-care (01) ==
LOC: CED 03:14
PROVIDERS: Emergency Medicine
DX: R10.12 Left upper quadrant pain (principal); R11.2 Nausea with vomiting, unspecified; J45.909 Unspecified asthma, uncomplicated; F17.200 Nicotine dependence, unspecified, uncomplicated; Z79.899 Other long term (current) drug therapy
CPT/HCPCS: 36415; 80048; 80076; 82150; 83690; 85025; 96361; 96374; 96375; 96376; 99284; J2270; J2405

== ENCOUNTER 2016-11-20 07:54 | Inpatient (IN) | payer MEDICARE, OTHER ==
--- NOTE | ~2016-11-20 | DS ---
Unit #: [id number] #: [id number] Patient: GUCCI LAW [id number] [address] [place], [place] [address] [id number] I MR#: [id number] NAME: GCUCI LAW. ROOM: 552 Age: 36 Sex: F Admission Date: 11/20/2016 : 1980 Discharge Date: 11/22/2016 Attending Physician: Ofelia Queen M.D. Primary Care Physician: Primary Care Physician No DISCHARGE SUMMARY Please note, patient left AMA. HISTORY OF PRESENT ILLNESS/REASON FOR ADMISSION Patient was originally admitted on 11/20/2016 secondary to emesis of bright red blood. She is a 35-year-old female with underlying history of varices of the esophagus, end-stage cirrhosis, alcohol abuse with poor insight, hepatitis C, chronic pancreatitis, chronic gastropathy, thrombocytopenia, as well as polysubstance abuse, who was admitted secondary to above. Please see History and Physical for complete details. She was appropriately given blood transfusion, octreotide drip as well as Protonix drip was initiated. Consultation was placed to Dr. Jiang of gastroenterology services for evaluation. The patient ultimately underwent upper GI endoscopy. For further evaluation, please see his procedure note for complete details. Initially, she was placed in the ICU and subsequently transitioned to the telemetry floor. While she was on telemetry floor, on 11/22/2016, her blood pressure remained persistently low. She repeatedly requested chronic narcotic medications and secondary to her systolic blood pressure being in the 80s to 90s, I notified her that we were unable to give morphine secondary to concern for possible hypotension. The patient became adamantly upset. She stated that she wanted to leave against medical advice. She was given appropriate papers to sign and she left against medical advice. Overall, the patient's long-term prognosis is poor. She is well aware of her chronic medical conditions and her need to abstain from alcohol to which she states she will continue to drink "until the day I ." FINAL DISCHARGE DIAGNOSES 1. Emesis bright red blood. 2. Grade 3 varices of the esophagus. 3. End-stage cirrhosis. 4. Hepatitis C. 5. Ongoing alcohol abuse. 6. History of chronic pancreatitis. 7. History of chronic gastropathy. 8. Chronic thrombocytopenia. 9. Poor insight into chronic medical conditions. Unit #: [id number] #: [id number] Patient: GUCCI LAW 10. Noncompliance. DISCHARGE DISPOSITION Home, patient left AMA. MEDICATIONS Unknown, not verified at time of discharge. Dictated by... Adrián Ashley/rafael TD: 11/29/2016 20:42 JOB #: [id number] DISCHARGE SUMMARY Page 1 of 1 X Ofelia Queen MD X DISCHARGE SUMMARY
--- NOTE | ~2016-11-20 | CO ---
Unit #: [id number] #: [id number] Patient: GUCCI LAW [id number] [address] [address] [id number] I MR#: [id number] NAME: GUCCI LAW. ROOM: [facility] Age: 35 Sex: F Admission Date: 11/20/2016 : 1980 Attending Physician: Rosalva Kaur M.D. Primary Care Physician: sEha Primary Care Physician Consultation Date: 11/20/2016 CONSULTATION REPORT REASON FOR CONSULT ICU management. CHIEF COMPLAINT Vomiting blood. HISTORY OF PRESENT ILLNESS This is a 35-year-old female who is well known to our service from previous admission with history of esophageal varices, cirrhosis, alcohol abuse, hepatitis C, chronic pancreatitis, chronic gastropathy, thrombocytopenia and polysubstance abuse who presented to the emergency department for evaluation of vomiting blood. The patient had multiple esophageal bands a month ago. In the emergency room her blood pressure was low upon presentation but responded immediately to IV fluids and blood transfusion. The patient was started on Protonix, octreotide, and EGD was performed, which showed (1) bleeding. The patient currently is feeling better and complaining only of abdominal pain. PAST MEDICAL HISTORY 1. Recurrent upper GI bleed. 2. Esophageal varices. 3. Diffuse gastropathy. 4. Cirrhosis secondary to hepatitis C. 5. Chronic pancreatitis. 6. Thrombocytopenia. PAST SURGICAL HISTORY 1. Multiple EGDs. 2. Common bile duct stent placement. 3. Wrist surgery. 4. Oral surgery. SOCIAL HISTORY The patient drinks 2 pints of gin daily. She smokes a pack of cigarettes daily. She denies any history of illicit drug use, but per records, she has a history of polysubstance abuse, including Xanax, cocaine and opiates. FAMILY HISTORY Brain malignancy. Unit #: [id number] #: [id number] Patient: GUCCI LAW ALLERGIES No known drug allergies. HOME MEDICATIONS 1. Bentyl. 2. Librium. 3. Lasix. 4. Multivitamin. 5. Tramadol. 6. Aldactone. 7. Protonix. 8. Thiamine. REVIEW OF SYSTEMS Twelve-point review of systems was obtained and was negative except for what was mentioned in the HPI. PHYSICAL EXAMINATION GENERAL: Patient complaining of abdominal pain. VITAL SIGNS: Her blood pressure currently is 105/62, respiratory rate 20, O2 saturation 98% on 1 liter nasal cannula. HEENT: Atraumatic, normocephalic. PERRLA, EOMI. NECK: Supple. No JVD. No lymphadenopathy. CHEST: Clear to auscultation bilaterally. HEART: S1, S2. No murmur, gallops or rubs. ABDOMEN: Distended and tender to deep palpation. EXTREMITIES: No edema or cyanosis. SKIN: No rashes. VOLUNTEER MANAGER: Awake, alert, oriented x3. No focal motor/sensory deficits. DIAGNOSTIC STUDIES LABS: Creatinine 0.5, calcium 7.5, albumin 2.3. White blood count 7.9, hemoglobin 8.3, platelets 34. ASSESSMENT 1. Upper GI bleed. 2. Acute on chronic anemia due to blood loss. 3. Thrombocytopenia. 4. Cirrhosis secondary to hepatitis C. 5. Alcoholism. 6. History of polysubstance abuse. PLAN 1. Patient currently is more stable after IV hydration and blood transfusion. 2. Will continue Protonix and octreotide. 3. Status post EGD with hemostasis. 4. CIWA protocol. 5. SCDs. Dictated by... Letty Moscoso M.D. EA/tali TD: 11/21/2016 07:52 Unit #: [id number] #: [id number] Patient: GUCCI LAW JOB #: [id number] CONSULTATION REPORT Page 1 of 1 X LETTY POLOE MD X CONSULTATION REPORT
--- NOTE | ~2016-11-20 | HP ---
Unit #: [id number] #: [id number] Patient: GUCCI LAW [id number] [address] [place], [place] [address] [id number] I MR#: [id number] NAME: GUCCI LAW. ROOM: [facility] Age: 35 Sex: F Admission Date: 11/20/2016 : 1980 Attending Physician: Rosalva Kaur M.D. Primary Care Physician: No Primary Care Physician HISTORY AND PHYSICAL CHIEF COMPLAINT Vomiting blood. HISTORY OF PRESENT ILLNESS The patient is a 35-year-old female with past medical history of esophageal varices, cirrhosis, alcohol abuse, hepatitis C, chronic pancreatitis, chronic gastropathy, thrombocytopenia and polysubstance abuse who presented to the emergency department for evaluation of the above. The patient states that she started vomiting blood last night. She reports 2 bouts of bloody emesis within the past 24 hours. She has had epigastric pain in association with the vomiting. She describes the pain as "burning." There are no exacerbating or alleviating factors. She states that it is similar to when she has had bleeding from varices in the past. She states that she has been feeling weak and dizzy. Her last drink was on the day prior to admission around 10 p.m. She typically drinks 2 pints of gin daily. In the emergency department the patient's initial pulse and blood pressure were 110 and 89/60 respectively. She was given one liter of normal saline, as well as octreotide and Protonix. She is currently on octreotide and Protonix drips. Two units of packed red blood cells have been ordered. She was also given Levaquin 750 mg IV x1. She is being admitted to [facility] for evaluation and further treatment. PAST MEDICAL HISTORY 1. Admission to [facility] within the past week. The patient states that she was "found in somebody's yard" (no records). 2. Admission to [facility] October 29 through November 01, 2016 for upper GI bleed secondary to variceal bleed. She underwent EGD that showed grade 3 esophageal varices. She underwent banding. Diffuse gastropathy was also noted. 3. Cirrhosis secondary to hepatitis C and alcohol abuse. 4. Chronic pancreatitis. 5. History of grade 3 esophageal varices status post banding. 6. Chronic gastropathy. 7. Chronic thrombocytopenia secondary to cirrhosis. PAST SURGICAL HISTORY 1. EGD, most recently October 30, 2016, showed grade 3 esophageal varices and diffuse gastropathy. The patient underwent banding during that Unit #: [id number] #: [id number] Patient: GUCCI ALW admission. 2. Common bile duct stent placement and removal. 3. Wrist surgery. 4. Oral surgery. SOCIAL HISTORY The patient lives with her stepdad. She drinks two pints of gin daily. She smokes a pack of cigarettes daily. She denies illicit drug use but, per record review, has a history of Xanax, cocaine and opiate abuse. FAMILY HISTORY Notable for her dad having brain malignancy. Her mother had COPD. ALLERGIES No known allergies. HOME MEDICATIONS (per discharge summary from November 01, 2016) 1. Bentyl 20 mg q.i.d. p.r.n. 2. Librium 25 mg p.o. b.i.d. 3. Lasix 20 mg daily. 4. Multivitamin daily. 5. Tramadol 50 mg q.6 hours p.r.n. 6. Aldactone 50 mg 2 tablets in the morning. 7. Protonix 40 mg daily. 8. Thiamine 100 mg daily. NOTE: Home medications will need to be reviewed and verified. REVIEW OF SYSTEMS A complete review of systems is negative except as indicated in the HPI. PHYSICAL EXAMINATION VITAL SIGNS: Temperature is 98, pulse 110, respirations 16, blood pressure 89/60 but did drop as low as 76/43. GENERAL: The patient is a female who is awake and alert, smells of alcohol. HEENT: The head is atraumatic. Mucous membranes are moist. NECK: Supple. Trachea is midline. CARDIOVASCULAR: Tachycardic in the one-teens. RESPIRATORY: Lungs are clear to auscultation bilaterally with no increased work of breathing. ABDOMEN: Soft. She is tender to palpation in the epigastric area. Bowel sounds are present in all 4 quadrants. RECTAL: Exam was heme positive per ER documentation. NEUROLOGIC: The patient is awake and alert. She is oriented x3. She follows commands. PSYCHIATRIC: The patient is somewhat anxious. She demonstrates poor judgment and insight. SKIN: Skin is generally pale. DIAGNOSTIC TESTS IMAGING: Chest x-ray shows no acute abnormality. LABORATORY: Complete blood count notable for hemoglobin of 7.2, hematocrit 22.6, platelets 63. Comprehensive metabolic panel notable for potassium of 3.1, glucose 135, BUN less than 5, creatinine 0.5. Calcium is 7.5 but corrects to 8.9 when accounting for albumin of 2.3. AST is 179, alkaline phosphatase 177. Alcohol level is 184. INR is 1.5. CK is 124. Unit #: [id number] #: [id number] Patient: GUCCI LAW ASSESSMENT 1. The patient is a 35-year-old female with upper GI bleed. The patient received 50 mcg of octreotide, 80 mg of Protonix in the emergency department. She is currently on Protonix and octreotide drips. 2. Acute blood loss anemia. The patient's hemoglobin was 10.7 on November 07, 2016. It is 7.2 today. Two units of packed red blood cells have been ordered. 3. Hypovolemic shock. The patient received one liter of normal saline in the emergency department. 4. History of esophageal varices status post banding. 5. Cirrhosis secondary to alcohol abuse and hepatitis C. 6. Alcohol abuse with intoxication. Blood alcohol level today is 184. 7. Hepatitis C. 8. Chronic pancreatitis. 9. Chronic gastropathy. 10. Chronic thrombocytopenia secondary to cirrhosis. The patient's platelets have been as low as 65 on October 30, 2016. Platelets are 63 today. 11. Polysubstance abuse. PLAN 1. Admit to ICU. 2. NPO for endoscopy. 3. Bedrest. 4. SCDs for DVT prophylaxis. 5. Protonix drip at 8 mg per hour. 6. Octreotide drip at 50 mcg per hour. 7. One liter normal saline bolus. 8. Zofran p.r.n. 9. Levophed drip for MAP greater than 65. 10. Transfuse 2 units packed red blood cells as previously ordered by the emergency room. 11. Hemoglobin and hematocrit 1 hour after transfusion and q.[address] Jiang regarding GI bleed. 13. Alcohol withdrawal protocol. 14. biodiesel plant manager and social work consult regarding alcohol abuse. 15. Neuro checks. 16. EKG and cardiac enzymes. 17. Urine tox screen. 18. Check ammonia level and magnesium. 19. Potassium/magnesium protocol. 20. Repeat labs in the morning. 21. Additional workup and consultants based on above. NOTE: Thirty-four minutes critical care time spent in the care of this patient (10:10 to 10:44 a.m.). Dictated by Adrián Pena/tali TD: 11/20/2016 11:30 JOB #: [id number] Unit #: [id number] #: [id number] Patient: GUCCI LAW HISTORY AND PHYSICAL Page 1 of 1 X Rosalva Kaur MD HISTORY AND PHYSICAL
--- NOTE | ~2016-11-20 | CR72 ---
[facility] A Service of [facility] RADIOLOGY TEXT RESULTS PATIENT: GUCCI LAW LOCATION: [place] [address] : [birth year] UNIT #: [id number] AGE: [address]: Rosalva Kaur MD SEX: F ORDER DR: [id number] [facility] [address] [place], [place] [address] [id number] I MR#: [id number] Acc #: [id number] NAME: GUCCI LAW. : 1980 SEX: F STUDY DATE/TIME: 11/20/2016 10:14 UNIT: [facility] ROOM: [facility] STUDY DESCRIPTION: CR Chest Single View Portable Attending Physician: Rosalva Kaur M.D. Ordering Physician: Gadiel Mclaughlin M.D. Primary Care Physician: Primary Care Physician No MEDICAL IMAGING REPORT This report is preliminary unless electronic signature is present EXAM AP portable chest, 11/20/2016 at 10:14 HISTORY Central line placement today COMPARISON AP portable chest, 11/20/2016 at 07:28. FINDINGS Right internal jugular central line tip extends to the cavoatrial junction. No pneumothorax. Clear lungs. Normal heart size. No pleural effusion. No acute osseous abnormality. IMPRESSION Right internal jugular central line placement with the tip at the cavoatrial junction. No pneumothorax. No acute chest findings. Dictated by... Alanna Fuentes M.D. THIS IS AN ELECTRONICALLY VERIFIED REPORT Alanna Fuentes M.D. at 11/21/2016 7:03 AM LANDY/kerry TD: 11/20/2016 12:19 JOB #: [id number] MEDICAL IMAGING REPORT Page 1 of 1 COPY
--- NOTE | ~2016-11-20 | EKG ---
PATIENT: GUCCI LAW UNIT #: [id number] Ventricular Rate: 116 BPM Atrial Rate: 116 BPM P-R Interval: 118 ms QRS Duration: 70 ms Q-T Interval: 368 ms QTC Calculation(Bezet): 511 ms P [place]: 66 degrees Calculated R [place]: 59 degrees Calculated T [place]: 38 degrees Diagnosis Line: Sinus tachycardia Diagnosis Line: Otherwise normal ECG Diagnosis Line: When compared with ECG of 19-OCT-2016 09:23, Diagnosis Line: No significant change was found Diagnosis Line: Confirmed by DANNI ANTHONY MD ([id number]) on 11/21/2016 Diagnosis Line: 7:55:22 PM INTERPRETING MD: RAJ MARIA
--- NOTE | ~2016-11-20 | CR72 ---
[facility] A Service of [facility] RADIOLOGY TEXT RESULTS PATIENT: GUCCI LAW LOCATION: [address] : [birth year] UNIT #: [id number] AGE: [address]: Rosalva Kaur MD SEX: F ORDER DR: [id number] [facility] [address] [place], [place] [address] [id number] I MR#: [id number] Acc #: [id number] NAME: GUCCI LAW. : 1980 SEX: F STUDY DATE/TIME: 11/20/2016 7:28 UNIT: [facility] ROOM: [facility] STUDY DESCRIPTION: CR Chest Single View Portable Attending Physician: Rosalva Kaur M.D. Ordering Physician: Gadiel Mclaughlin M.D. Primary Care Physician: Primary Care Physician No MEDICAL IMAGING REPORT This report is preliminary unless electronic signature is present EXAM AP portable chest. Date: 11/20/2016 HISTORY 35-year-old female complains of cough and vomiting blood for 3 days. Hepatitis C. Asthma. Smoking history. COMPARISON AP portable chest 10/19/2016. FINDINGS Clear lungs. Normal heart size. No pleural effusion or pneumothorax. No acute osseous abnormalities are identified. IMPRESSION No acute cardiopulmonary findings. Dictated by... Alanna Fuentes M.D. THIS IS AN ELECTRONICALLY VERIFIED REPORT Alanna Fuentes M.D. at 11/21/2016 7:02 AM LANDY/billy TD: 11/20/2016 10:52 JOB #: [id number] MEDICAL IMAGING REPORT Page 1 of 1 COPY
[2016-11-20 07:41] LABS: BASOPHIL% 0.4 % (0-2.5); EOSINOPHIL# 0.1 X10e3 (0-0.7); EOSINOPHIL% 1.1 % (0.0-7.0); HEMATOCRIT 22.6 % (35.0-45.0); HEMOGLOBIN 7.2 gm/dL (12.0-16.0); LYMPHOCYTE# 1.4 X10e3 (1.0-3.5); LYMPHOCYTE% 17.2 % (17.0-45.0); MEAN CELL VOLUME 92.7 FL (83-96); MEAN CORPUSCULAR HEMOGLOBIN 29.7 PG (28-34); MEAN PLATELET VOLUME 9.8 FL (6.5-11.5); MONOCYTE# 0.4 X10e3 (0-1.0); MONOCYTE% 5.3 % (3.0-12.0); RED BLOOD COUNT 2.44 X10e (3.90-5.30); RED CELL DISTRIBUTION WIDTH 18.3 % (11.0-15.5); WHITE BLOOD COUNT 7.9 X10e3 (4.0-10.5)
[2016-11-20 08:03] LABS: DIFF IND YES; PLATELET COUNT 63 X10e3 (140-420)
[2016-11-20 08:06] LABS: PLATELET ESTIMATE DECREASED (NORMAL)
[2016-11-20 08:07] LABS: ANISOCYTOSIS MOD; POIKILOCYTOSIS SL
[2016-11-20 08:08] LABS: HYPOCHROMIA SL
[2016-11-20 08:48] LABS: ALBUMIN SERUM 2.3 g/dL (3.5-5.0); ALKALINE PHOSPHATASE 177 U/L (32-92); ALT (SGPT) 38 U/L (10-40); AST (SGOT) 179 U/L (10-42); BILIRUBIN, DIRECT 0.6 mg/dL (0.0-0.2); BILIRUBIN,INDIRECT 0.9 mg/dL (0.0-0.9); BILIRUBIN,TOTAL 1.5 mg/dL (0.2-2.0); CALCIUM SERUM 7.5 mg/dL (8.4-10.2); CARBON DIOXIDE 24 mmol/L (22-31); CHLORIDE 102 mmol/L (100-111); CREATININE SERUM 0.5 mg/dL (0.6-1.4); GLOM FILT RATE Estimated 127.2 mL/min (>60); GLUCOSE FASTING 135 mg/dL (70-110); LIPASE 36 U/L (22-51); POTASSIUM 3.1 mmol/L (3.5-5.1); PROTEIN TOTAL SERUM 6.5 g/dL (6.0-8.3); SODIUM 137 mmol/L (135-145)
[2016-11-20 08:50] LABS: BLOOD UREA NITROGEN <5 mg/dL (9-23)
[2016-11-20 08:51] LABS: ALCOHOL BLOOD 184 mg/dL (0)
[2016-11-20 09:04] LABS: INR 1.5; PARTIAL THROMBOPLASTIN TIME 28.5 SECONDS (23.5-31.3); PROTHROMBIN TIME (PATIENT) 15.7 SECONDS (9.6-11.5)
[2016-11-20 10:29] LABS: URINE SOURCE CLEAN CATCH
[2016-11-20 10:33] LABS: URINE APPEARANCE CLEAR; URINE BLOOD NEG (NEG); URINE COLOR DK YELLOW; URINE GLUCOSE NEG (NEG); URINE KETONE TRACE (NEG); URINE LEUKOCYTE ESTERASE TRACE (NEG); URINE NITRATE NEG (NEG); URINE PH 5.5 (5-8); URINE PROTEIN NEG (NEG); URINE SPECIFIC GRAVITY 1.028 (1.003-1.035)
[2016-11-20 10:35] LABS: URINE BACTERIA AUWI NEG (NEGATIVE); URINE SQUAMOUS EPITHELIAL CELL FEW /[HPF]; UWBCS1 AUWI 0-2 (0-5)
[2016-11-20 10:35] LABS: %MB 6.9 % (0.0-4.0); MB 8.6 ng/ml
[2016-11-20 10:48] LABS: URINE BILIRUBIN POS (NEG)
[2016-11-20 10:51] LABS: URBCS1 AUWI NEG /[HPF] (0-2); URINE MUCUS PRESENT
[2016-11-20 10:57] LABS: AMPHETAMINE NEG (NEG); BARBITURATES NEG (NEG); BENZODIAZEPINES POS (NEG); COCAINE NEG (NEG); MARIJUANA NEG (NEG); OPIATES NEG (NEG); TRICYCLIC ANTIDEPRESSANTS NEG (NEG); U METHADONE NEG (NEG)
[2016-11-20 13:43] LABS: HEMATOCRIT 22.3 % (35.0-45.0); HEMOGLOBIN 7.3 gm/dL (12.0-16.0); MEAN CORPUSCULAR HEMOGLOBIN 29.1 PG (28-34); MEAN CORPUSCULAR HGB CONC 32.7 g/dL (30-36); MEAN PLATELET VOLUME 8.9 FL (6.5-11.5); RED BLOOD COUNT 2.51 X10e (3.90-5.30); RED CELL DISTRIBUTION WIDTH 16.7 % (11.0-15.5); WHITE BLOOD COUNT 4.7 X10e3 (4.0-10.5)
[2016-11-20 14:37] LABS: %MB 8.8 % (0.0-4.0); MB 9.7 ng/ml
[2016-11-20 19:20] LABS: HEMATOCRIT 25.3 % (35.0-45.0); HEMOGLOBIN 8.3 gm/dL (12.0-16.0)
[2016-11-20 20:01] LABS: %MB 13.9 % (0.0-4.0); MB 26.8 ng/ml
[2016-11-20 21:01] LABS: HEMATOCRIT 25.3 % (35.0-45.0); HEMOGLOBIN 8.4 gm/dL (12.0-16.0)
[2016-11-20 23:00] LABS: HEMATOCRIT 24.8 % (35.0-45.0); HEMOGLOBIN 8.2 gm/dL (12.0-16.0)
[2016-11-21 05:39] LABS: BASOPHIL% 0.2 % (0-2.5); EOSINOPHIL# 0.1 X10e3 (0-0.7); EOSINOPHIL% 2.1 % (0.0-7.0); HEMATOCRIT 22.8 % (35.0-45.0); HEMOGLOBIN 7.6 gm/dL (12.0-16.0); LYMPHOCYTE% 22.2 % (17.0-45.0); MEAN CELL VOLUME 88.6 FL (83-96); MEAN CORPUSCULAR HEMOGLOBIN 29.3 PG (28-34); MEAN CORPUSCULAR HGB CONC 33.1 g/dL (30-36); MEAN PLATELET VOLUME 9.4 FL (6.5-11.5); MONOCYTE# 0.4 X10e3 (0-1.0); MONOCYTE% 7.7 % (3.0-12.0); NEUTROPHIL# 3.1 X10e3 (1.5-7.1); NEUTROPHIL% 67.8 % (40-75); RED BLOOD COUNT 2.58 X10e (3.90-5.30); RED CELL DISTRIBUTION WIDTH 16.7 % (11.0-15.5); WHITE BLOOD COUNT 4.6 X10e3 (4.0-10.5)
[2016-11-21 05:58] LABS: PLATELET COUNT 28 X10e3 (140-420)
[2016-11-21 05:59] LABS: DIFF IND NO
[2016-11-21 06:40] LABS: ALBUMIN SERUM 1.8 g/dL (3.5-5.0); BILIRUBIN,TOTAL 1.4 mg/dL (0.2-2.0); CREATININE SERUM 0.5 mg/dL (0.6-1.4); GLOM FILT RATE Estimated 127.2 mL/min (>60); MAGNESIUM 1.4 mg/dL (1.6-3.0); POTASSIUM 3.4 mmol/L (3.5-5.1); PROTEIN TOTAL SERUM 4.7 g/dL (6.0-8.3)
[2016-11-21 07:37] LABS: INR 1.5; PROTHROMBIN TIME (PATIENT) 16.4 SECONDS (9.6-11.5)
[2016-11-21 11:10] LABS: HEMOGLOBIN 7.6 gm/dL (12.0-16.0)
[2016-11-21 17:56] LABS: HEMATOCRIT 24.5 % (35.0-45.0)
[2016-11-21 23:41] LABS: HEMATOCRIT 24.9 % (35.0-45.0)
[2016-11-22 06:35] LABS: BASOPHIL% 0.5 % (0-2.5); EOSINOPHIL# 0.1 X10e3 (0-0.7); EOSINOPHIL% 4.4 % (0.0-7.0); HEMATOCRIT 23.5 % (35.0-45.0); HEMOGLOBIN 7.6 gm/dL (12.0-16.0); LYMPHOCYTE% 30.6 % (17.0-45.0); MEAN CELL VOLUME 91.2 FL (83-96); MEAN CORPUSCULAR HEMOGLOBIN 29.5 PG (28-34); MEAN CORPUSCULAR HGB CONC 32.3 g/dL (30-36); MEAN PLATELET VOLUME 9.8 FL (6.5-11.5); MONOCYTE# 0.3 X10e3 (0-1.0); MONOCYTE% 10.5 % (3.0-12.0); NEUTROPHIL# 1.7 X10e3 (1.5-7.1); RED BLOOD COUNT 2.57 X10e (3.90-5.30); RED CELL DISTRIBUTION WIDTH 17.6 % (11.0-15.5); WHITE BLOOD COUNT 3.2 X10e3 (4.0-10.5)
[2016-11-22 06:42] LABS: DIFF IND YES; PLATELET COUNT 27 X10e3 (140-420)
[2016-11-22 06:53] LABS: INR 1.5; PROTHROMBIN TIME (PATIENT) 16.4 SECONDS (9.6-11.5)
[2016-11-22 07:03] LABS: ALBUMIN SERUM 1.9 g/dL (3.5-5.0); ALKALINE PHOSPHATASE 118 U/L (32-92); ALT (SGPT) 32 U/L (10-40); AST (SGOT) 117 U/L (10-42); BILIRUBIN,TOTAL 1.2 mg/dL (0.2-2.0); BLOOD UREA NITROGEN <5 mg/dL (9-23); CALCIUM SERUM 7.2 mg/dL (8.4-10.2); CARBON DIOXIDE 24 mmol/L (22-31); CHLORIDE 105 mmol/L (100-111); CREATININE SERUM 0.5 mg/dL (0.6-1.4); GLOM FILT RATE Estimated 127.2 mL/min (>60); GLUCOSE FASTING 159 mg/dL (70-110); MAGNESIUM 1.6 mg/dL (1.6-3.0); PHOSPHOROUS 2.1 mg/dL (2.5-4.6); POTASSIUM 3.7 mmol/L (3.5-5.1); PROTEIN TOTAL SERUM 4.7 g/dL (6.0-8.3); SODIUM 133 mmol/L (135-145)
[2016-11-22 07:50] LABS: NUCLEATED RED BLOOD CELL 1 /100 (0)
[2016-11-22 07:51] LABS: ANISOCYTOSIS SL; PLATELET ESTIMATE DECREASED (NORMAL); POIKILOCYTOSIS SL; RBC NORMAL YES
[2016-11-22 12:09] LABS: HEMATOCRIT 23.3 % (35.0-45.0); HEMOGLOBIN 7.5 gm/dL (12.0-16.0)
[2017-05-01] MEDS ORDERED: PATIENT'S PHARMACY (17:31)
[2017-05-01] MEDS ORDERED: AMOXICILLIN875 MG PO (17:31)
[2017-05-01] MEDS ORDERED: LASIX20 MG PO ×2 (17:32→22:48)
[2017-05-01] MEDS ORDERED: WELLBUTRIN100 MG PO (17:32)
[2017-05-01] MEDS ORDERED: ALDACTONE PO (17:32)
[2017-05-01] MEDS ORDERED: BENTYL20 MG PO (22:40)
[2017-05-01] MEDS ORDERED: COMPAZINE10 M2 PO (22:42)
[2017-05-01] MEDS ORDERED: PRILOSEC PO (22:43)
[2017-05-01] MEDS ORDERED: VITAMINE B-1100 MG PO (22:43)
[2017-05-01] MEDS ORDERED: MULTI VITAMIN1 EACH PO (22:43)
[2017-05-01] MEDS ORDERED: OXYCODONE HCL10 MG PO (22:44)
[2017-05-01] MEDS ORDERED: TESSALON PERLE100 M1 PO (22:45)
[2017-05-01] MEDS ORDERED: POTASSIUM CHLO20 ME1 PO (22:45)
[2017-05-01] MEDS ORDERED: LACTULOSE10 GM/15 M PO (22:46)
[2017-05-01] MEDS ORDERED: DESYREL50 MG PO (22:46)
[2017-05-01] MEDS ORDERED: LASIX PO (22:47)
[2017-05-01] MEDS ORDERED: DEXAMETHASONE4 MG PO (22:47)
[2017-05-01] MEDS ORDERED: CITALOPRAM HBR40 MG PO (22:47)
[2017-05-01] MEDS ORDERED: ATIVAN2 MG PO (22:49)
[2017-05-01] MEDS ORDERED: SPIRONOLACTONE100 MG PO (22:50)
== END 2016-11-22 14:04 | disposition left against medical advice (07) | DRG 432 ==
LOC: CED 07:54 → CEDOF 08:50 → CICCU2 10:00 → C5B 11-21 16:06
PROVIDERS: Emergency Medicine; Family Medicine; Internal Medicine
PROC: B548ZZA Ultrasonography of Superior Vena Cava, Guidance (ICD-10-PCS; 2016-11-20)
PROC: 30243R1 Transfusion of Nonautologous Platelets into Central Vein, Percutaneous Approach (ICD-10-PCS; 2016-11-20)
PROC: 30243N1 Transfusion of Nonautologous Red Blood Cells into Central Vein, Percutaneous Approach (ICD-10-PCS; principal; 2016-11-20 13:34)
PROC: 02HV33Z Insertion of Infusion Device into Superior Vena Cava, Percutaneous Approach (ICD-10-PCS; 2016-11-20 13:34)
DX: K70.30 Alcoholic cirrhosis of liver without ascites (principal); R57.1 Hypovolemic shock; I85.11 Secondary esophageal varices with bleeding; D61.818 Other pancytopenia; D62 Acute posthemorrhagic anemia; K86.1 Other chronic pancreatitis; D69.59 Other secondary thrombocytopenia; B19.20 Unspecified viral hepatitis C without hepatic coma; F10.220 Alcohol dependence with intoxication, uncomplicated; Y90.6 Blood alcohol level of 120-199 mg/100 ml; K31.9 Disease of stomach and duodenum, unspecified; F17.210 Nicotine dependence, cigarettes, uncomplicated; F19.10 Other psychoactive substance abuse, uncomplicated
CPT/HCPCS: 36556; 71010; 80048; 80053; 80076; 80307; 81003; 82140; 82550; 82553; 83690; 83735; 84100; 84132; 84484; 85014; 85018; 85025; 85027; 85610; 85730; 86850; 86900; 86901; 86923; 93005; 96361; 96374; 96375; 99291; C9113; G0480; J1956; J2060; J2250; J2270; J2354; J2405; J2765; J3411; J3475; J7042; P9016; P9035

== ENCOUNTER 2016-12-07 12:48 | Inpatient (IN) | payer MEDICARE, OTHER ==
--- NOTE | ~2016-12-07 | CO ---
Unit #: [id number] #: [id number] Patient: GUCCI DUQUE [id number] [address] [place], [place] [address] [id number] I MR#: [id number] NAME: GUCCI DUQUE. ROOM: 563 Age: 36 Sex: F Admission Date: 12/07/2016 : 1980 Attending Physician: Laurie Moscoso M.D. Primary Care Physician: Primary Care Physician No Consultation Date: 12/07/2016 CONSULTATION REPORT REASON FOR CONSULTATION Hematemesis. HISTORY OF PRESENTING ILLNESS Ms. Duque is a 36-year-old lady, known to us from multiple admissions over the last few months. She is an active heavy alcohol drinker, presented today with a bout of hematemesis this morning. She says she has been drinking until yesterday. She also complains of abdominal pain, which is chronic. She denies any fever or chills. She has mild chronic diarrhea. PAST MEDICAL HISTORY Significant for recurrent GI bleeding, history of alcoholic and hepatitis C related cirrhosis, active alcoholism, hepatitis C, chronic pancreatitis, thrombocytopenia. SOCIAL HISTORY Again, smoker. Two pints of gin daily. FAMILY HISTORY Noncontributory. ALLERGIES None. MEDICATIONS Reviewed. REVIEW OF SYSTEMS Complete 10-point review of systems was done, which is unremarkable other than as mentioned above. PHYSICAL EXAMINATION GENERAL: The patient is sitting comfortably in bed. Does not appear to be in any distress. VITAL SIGNS: Stable. She is afebrile. HEENT: Pupils are equal, reactive. Sclerae anicteric. Oral mucosa moist. NECK: No JVD. No lymphadenopathy. CHEST: Clear to auscultation bilaterally. CARDIOVASCULAR: Regular rate and rhythm. No murmurs. ABDOMEN: Minimally distended. No guarding. No rebound. No tenderness. EXTREMITIES: Without clubbing, cyanosis, or edema. NEUROLOGIC: Intact. Unit #: [id number] #: [id number] Patient: GUCCI DUQUE SKIN: Warm and dry. DIAGNOSTIC STUDIES LABORATORY RESULTS: Hemoglobin 8.5, which is better than her baseline of 7.5. LFTs are borderline and baseline. ASSESSMENT AND PLAN 1. The patient with possible recurrent upper gastrointestinal bleeding, could be related to esophagitis, Yeny-Sears tear as well as possibly variceal. At this time, her hemoglobin is stable. She does not seem to be hemodynamically unstable. We will continue on Protonix and octreotide drips for short while, while watching for continued bleeding or any significant drop in hemoglobin. Further recommendations to be based on progress. 2. Alcoholic cirrhosis, hepatitis C. we will take delirium tremens precautions. We have had multiple discussions with the patient regarding abstinence and getting off the alcohol. Thank you, Dr. Moscoso, for this interesting consult. We will follow along. Dictated by... Adrián Lovell/drake TD: 12/07/2016 14:06 JOB #: [id number] CONSULTATION REPORT Page 1 of 1 X Alex Jiang MD X CONSULTATION REPORT
--- NOTE | ~2016-12-07 | HP ---
Unit #: [id number] #: [id number] Patient: GUCCI LAW [id number] [address] [place], [place] [address] [id number] I MR#: [id number] NAME: GUCCI LAW ROOM: 563 Age: 36 Sex: F Admission Date: 12/07/2016 : 1980 Attending Physician: Laurie Moscoso M.D. Primary Care Physician: No Primary Care Physician HISTORY AND PHYSICAL CHIEF COMPLAINT Vomiting blood. HISTORY OF PRESENT ILLNESS The patient is a 36-year-old female with a past medical history of esophageal varices, cirrhosis, alcohol abuse, hep C, chronic pancreatitis, thrombocytopenia and polysubstance abuse, presented to the emergency room with vomiting blood. The patient was recently left AMA on 11/29/2016 secondary to the pain medications. The patient presented today to the emergency room complaining of the vomiting blood that started early this morning. The patient had an upper endoscopy on 10/30/2016 with a history of a variceal bleeding. The patient had grade 3 esophageal varices, status post six bands were placed and diffuse gastropathy and there was a (1) straining out of the ampulla, which was removed using a snare during the procedure. The patient also complains of the generalized abdominal pain associated with the vomiting of the dark red clotted blood. The patient denies any fever, chest pain, or shortness of breath. The patient's hemoglobin is 8.5 and is being admitted for the above reasons. The patient has been started on the Protonix and octreotide drips for the 24 hours. PAST MEDICAL HISTORY History of variceal bleeding, cirrhosis, chronic pancreatitis, history of grade 3 esophageal varices, status post banding, chronic gastropathy, and thrombocytopenia secondary to cirrhosis. PAST SURGICAL HISTORY EGD, common bile duct stent placement and removal, wrist surgery, oral surgery. SOCIAL HISTORY The patient lives with her stepdad. She drinks two pints of gin daily. She smokes a pack of cigarettes daily. She denies any illicit drug abuse. Per record, she has a history of Xanax, cocaine, and opiate abuse. FAMILY HISTORY Notable for dad having a brain malignancy. Mother had COPD. ALLERGIES No known drug allergies. HOME MEDICATIONS She is on Librium, Bentyl, Lasix, multivitamin, tramadol, Aldactone, Protonix and thiamine. Unit #: [id number] #: [id number] Patient: GUCCI LAW REVIEW OF SYSTEMS Fourteen point review of systems was performed and only pertinent positives are as described above. The remaining are negative. PHYSICAL EXAMINATION GENERAL: The patient is lying on the bed, not in acute distress. VITALS: Temperature 98.6, pulse 125, respiratory rate 15, blood pressure 198/76, satting 99% on room air. HEENT: Head atraumatic, normocephalic. Pupils equal, round and reactive to light and accommodation. Extraocular movements are intact. Positive for pallor. Negative for jaundice and dry mucous membranes. NECK: Supple. LUNGS: Decreased air entry at the bases. HEART: Regular rate and rhythm. ABDOMEN: Soft. Positive bowel sounds. Generalized tenderness. EXTREMITIES: No cyanosis. No clubbing. NEUROLOGIC: Alert, awake and oriented. No gross focal motor deficit. PSYCHIATRIC: Patient has poor judgment and insight. SKIN: Fair. DIAGNOSTIC STUDIES LABORATORY DATA: Glucose 110, BUN 10, creatinine 0.5, sodium 140, potassium 3.5, chloride 107, bicarb 26, calcium 8, phosphorus 2.1, magnesium 1.6. Direct bili 0.4, indirect bili 1, AST 105, ALT 30, alk phos 177, and lipase 24 and alcohol less than 5. Beta HCG is negative. Hemoglobin is 8.5, hematocrit 26.5, WBC 8.1, platelet is 117. Urine tox is positive for benzodiazepines and marijuana. UA shows trace leukocyte esterase and 1+ urine bacteria. ASSESSMENT 1. GI bleed secondary to the variceal bleed. 2. Alcohol abuse. 3. Anemia. 4. Chronic thrombocytopenia. PLAN Plan to admit the patient to the inpatient telemetry, given hemoglobin of 8.5. Continue with the Protonix and octreotide drip. Consult GI for the endoscopy and patient will have the CIWA protocol for alcohol withdrawal and SCDs for DVT prophylaxis. Iron for the (2) and Motrin for the pain and further recommendations will follow as more lab results are available. Dictated by Adrián Stanton TD: 12/07/2016 19:05 JOB #: [id number] Unit #: [id number] #: [id number] Patient: GUCCI LAW HISTORY AND PHYSICAL Page 1 of 1 X X HISTORY AND PHYSICAL
--- NOTE | ~2016-12-07 | EKG ---
PATIENT: GUCCI LAW UNIT #: [id number] Ventricular Rate: 84 BPM Atrial Rate: 84 BPM P-R Interval: 142 ms QRS Duration: 76 ms Q-T Interval: 400 ms QTC Calculation(Bezet): 472 ms P [place]: 34 degrees Calculated R [place]: 32 degrees Calculated T [place]: 20 degrees Diagnosis Line: Normal sinus rhythm Diagnosis Line: Normal ECG Diagnosis Line: When compared with ECG of 20-NOV-2016 10:53, Diagnosis Line: No significant change was found Diagnosis Line: Confirmed by DANNI ANTHONY MD ([id number]) on 12/08/2016 Diagnosis Line: 11:01:21 PM INTERPRETING MD: RAJ MARIA
--- NOTE | ~2016-12-07 | DS ---
Unit #: [id number] #: [id number] Patient: GUCCI DUQUE [id number] [address] [address] [id number] I MR#: [id number] NAME: GUCCI DUQUE. ROOM: 563 Age: 36 Sex: F Admission Date: 12/07/2016 : 1980 Discharge Date: 12/10/2016 Attending Physician: Ofelia Queen M.D. Primary Care Physician: No Primary Care Physician DISCHARGE SUMMARY REASON FOR ADMISSION Vomiting blood. HISTORY OF PRESENT ILLNESS/HOSPITAL COURSE The patient is a 36-year-old female with underlying history of varices or the esophagus, endstage cirrhosis, alcohol abuse, with ongoing abuse, hepatitis C, chronic pancreatitis, chronic thrombocytopenia, pancytopenia and polysubstance abuse in the past. The patient presented secondary emesis with bright red blood. She was recently admitted to our hospital in November, as well as October 2016 and has had recurrent hospital admissions off and on for similar circumstance. The patient does have grade 3 esophageal varices. Secondary to acute emesis, her hemoglobin was 5.8 and she was appropriately transfused two units. She was placed in the ICU initially and was transferred to the telemetry floor. Dr. Jiang was once again consulted. Rather than repeating upper GI endoscopy he recommended close observation, which we did through her hospital course. The patient did undergo a CT of the abdomen and pelvis, which did not show any acute findings, but did show the aforementioned cirrhosis. It was noted her abdomen was distended, consistent with ascites. She did undergo paracentesis with removal of 3.4 liters. After review of the overall condition of Ms. Duque's long-term wellbeing, discussion as well as pain management became an issue. Therefore, we consulted Hospice services. Her overall prognosis is very poor. She is well aware that her longstanding history of chronic alcohol abuse has lead her to this point in time. Some of the changes which have occurred to her liver as well as varices of her esophagus as well as chronic pancytopenia are irreversible and, therefore, the patient will be discharged home with Hospice services. FINAL DISCHARGE DIAGNOSES 1. Cirrhosis secondary to alcohol abuse. 2. Ongoing alcohol abuse with poor insight. 3. Grade 3 varices of the esophagus. 4. Vomiting with associated hematemesis. 5. Acute on chronic pancreatitis. 6. Prior history of banding procedure for the aforementioned varices. Unit #: [id number] #: [id number] Patient: GUCCI DUQUE 7. Chronic gastropathy. 8. Chronic pain syndrome. 9. Chronic thrombocytopenia with discharge platelets at 82 have been as low as 15 in the past. 10. Anemia, likely of chronic disease. Baseline hemoglobin between 8 to 9. 11. Chronic and recurrent ascites. 12. Prior history of polysubstance abuse. 13. Failure to thrive. 14. Hepatitis C. DISPOSITION Home with Hospice services. PROGNOSIS Overall long-term prognosis poor. Dictated by... Adrián Ashley/ebony TD: 12/10/2016 13:46 JOB #: [id number] DISCHARGE SUMMARY Page 1 of 1 X Ofelia Queen MD X DISCHARGE SUMMARY
--- NOTE | ~2016-12-07 | XA170 ---
[facility] A Service of [facility] & [facility] RADIOLOGY TEXT RESULTS PATIENT: GUCCI LAW LOCATION: [facility] 563-01 : 82 UNIT #: [id number] AGE: [address]: Ofelia Queen MD SEX: F ORDER DR: [id number] [facility] [address] [place], [place] [address] [id number] I MR#: [id number] Acc #: [id number] NAME: GUCCI LAW. : 1980 SEX: F STUDY DATE/TIME: 12/09/2016 11:42 UNIT: [facility] ROOM: [facility] STUDY DESCRIPTION: XA Paracentesis W Image Attending Physician: Laurie Moscoso M.D. Ordering Physician: Alex Jiang M.D. MEDICAL IMAGING REPORT This report is preliminary unless electronic signature is present EXAM Ultrasound-guided paracentesis 12/09/2016 HISTORY Cirrhosis with recurrent ascites. PROCEDURE Informed consent was obtained. Skin site was selected with ultrasound guidance and marked, sterilely prepped and draped, and locally anesthetized. A [employer] needle catheter was used for paracentesis. A single static ultrasound image was preserved. 3.4 L of fluid was removed. There are no complications. IMPRESSION Successful ultrasound-guided paracentesis with removal of 3.4 L of clear yellow fluid without complication. Dictated by... South Weber M.D. THIS IS AN ELECTRONICALLY VERIFIED REPORT South Weber M.D. at 12/16/2016 10:45 AM TEV/pcl TD: 12/09/2016 17:50 JOB #: [id number] MEDICAL IMAGING REPORT Page 1 of 1 COPY
--- NOTE | ~2016-12-07 | CT4 ---
[facility] A Service of [facility] RADIOLOGY TEXT RESULTS PATIENT: GUCCI LAW [facility] 5610-09 : 82 UNIT #: [id number] AGE: [address]: FANTASMA MOSCOSO MD SEX: F ORDER DR: [id number] [facility] [address] [place], [place] [address] [id number] I MR#: [id number] Acc #: [id number] NAME: GUCCI LAW. : 1980 SEX: F STUDY DATE/TIME: 12/07/2016 15:21 UNIT: [facility] ROOM: 3 STUDY DESCRIPTION: CT Abd and Pelv Wo Cont Attending Physician: Fantasma Moscoso M.D. Ordering Physician: Yobani [facility] Antoine Schultz Primary Care Physician: Primary Care Physician No MEDICAL IMAGING REPORT This report is preliminary unless electronic signature is present EXAM CT abdomen and pelvis without contrast. HISTORY Abdomen pain, nausea, vomiting and diarrhea for 2 days. Hematemesis. TECHNIQUE This CT exam was performed with one or more of the following radiation dose reduction techniques: automatic exposure control, adjustment of mA and/or kV according to patient size, and iterative reconstruction. FINDINGS CT abdomen and pelvis was performed without contrast. CT ABDOMEN: Small hiatal hernia. Moderate diffuse abdominal ascites. Morphologic changes of cirrhosis with borderline to mild splenic enlargement measuring 13 cm. Multifocal fatty infiltration of the liver. No biliary ductal dilatation. The gallbladder is unremarkable. No bowel dilatation. Moderate duodenal wall thickening, primarily in the transverse duodenum. No small or large bowel dilatation. The pancreas, kidneys, and adrenal glands are unremarkable. No renal calculi or hydronephrosis. CT PELVIS: Moderate pelvic ascites. No bowel dilatation. The uterus and adnexa are unremarkable. Normal appendix. IMPRESSION 1. Moderate abdominal and pelvic ascites. 2. Morphologic changes of cirrhosis with borderline to mild splenic [facility] A Service of [facility] RADIOLOGY TEXT RESULTS PATIENT: GUCCI LAW [facility] 5610-09 : 82 UNIT #: [id number] AGE: [address]: FANTASMA MOSCOSO MD SEX: F ORDER DR: enlargement. 3. Moderate multifocal fatty infiltration of the liver. 4. No bowel obstruction or urinary obstruction. 5. Moderate transverse duodenal wall thickening could be secondary to infectious or inflammatory duodenitis. No bowel obstruction or urinary obstruction. 6. Small hiatal hernia. 7. Normal appendix. Dictated by... Adam Sargent M.D. THIS IS AN ELECTRONICALLY VERIFIED REPORT Adam Sargent M.D. at 12/08/2016 10:55 PM CHARLI/jeni TD: 12/07/2016 17:07 JOB #: [id number] MEDICAL IMAGING REPORT Page 1 of 1 COPY
[2016-12-07 12:45] LABS: BASOPHIL# 0.1 X10e3 (0-0.3); BASOPHIL% 0.9 % (0-2.5); EOSINOPHIL# 0.1 X10e3 (0-0.7); EOSINOPHIL% 0.8 % (0.0-7.0); HEMATOCRIT 26.5 % (35.0-45.0); HEMOGLOBIN 8.5 gm/dL (12.0-16.0); LYMPHOCYTE# 0.9 X10e3 (1.0-3.5); LYMPHOCYTE% 10.5 % (17.0-45.0); MEAN CORPUSCULAR HGB CONC 31.9 g/dL (30-36); MEAN PLATELET VOLUME 9.2 FL (6.5-11.5); MONOCYTE# 0.6 X10e3 (0-1.0); MONOCYTE% 7.3 % (3.0-12.0); NEUTROPHIL# 6.6 X10e3 (1.5-7.1); NEUTROPHIL% 80.5 % (40-75); PLATELET COUNT 117 X10e3 (140-420); RED BLOOD COUNT 2.92 X10e (3.90-5.30); WHITE BLOOD COUNT 8.1 X10e3 (4.0-10.5)
[2016-12-07 12:47] LABS: DIFF IND NO
[2016-12-07 12:59] LABS: INR 1.4; PARTIAL THROMBOPLASTIN TIME 28.7 SECONDS (23.5-31.3); PROTHROMBIN TIME (PATIENT) 14.5 SECONDS (9.6-11.5)
[2016-12-07 13:12] LABS: ALBUMIN SERUM 2.3 g/dL (3.5-5.0); BILIRUBIN, DIRECT 0.4 mg/dL (0.0-0.2); BILIRUBIN,TOTAL 1.4 mg/dL (0.2-2.0); CREATININE SERUM 0.5 mg/dL (0.6-1.4); GLOM FILT RATE Estimated 126.3 mL/min (>60); POTASSIUM 3.5 mmol/L (3.5-5.1)
[2016-12-07 14:32] LABS: URINE SOURCE CLEAN CATCH
[2016-12-07 14:40] LABS: URINE APPEARANCE CLEAR; URINE BILIRUBIN NEG (NEG); URINE BLOOD NEG (NEG); URINE COLOR DK YELLOW; URINE GLUCOSE NEG (NEG); URINE KETONE TRACE (NEG); URINE LEUKOCYTE ESTERASE TRACE (NEG); URINE NITRATE NEG (NEG); URINE PH 6.5 (5-8); URINE PROTEIN NEG (NEG); URINE SPECIFIC GRAVITY 1.025 (1.003-1.035)
[2016-12-07 14:42] LABS: CULTURE INDICATED? YES; URINE BACTERIA AUWI 1+ (NEGATIVE); URINE SQUAMOUS EPITHELIAL CELL FEW /[HPF]
[2016-12-07 15:31] LABS: AMPHETAMINE NEG (NEG); BARBITURATES NEG (NEG); BENZODIAZEPINES POS (NEG); COCAINE NEG (NEG); MARIJUANA POS (NEG); OPIATES NEG (NEG); TRICYCLIC ANTIDEPRESSANTS NEG (NEG); U METHADONE NEG (NEG)
[2016-12-08 09:06] LABS: HEMATOCRIT 18.5 % (35.0-45.0); MEAN CELL VOLUME 91.8 FL (83-96); MEAN CORPUSCULAR HEMOGLOBIN 28.9 PG (28-34); MEAN CORPUSCULAR HGB CONC 31.5 g/dL (30-36); MEAN PLATELET VOLUME 9.6 FL (6.5-11.5); RED BLOOD COUNT 2.02 X10e (3.90-5.30); RED CELL DISTRIBUTION WIDTH 19.3 % (11.0-15.5); WHITE BLOOD COUNT 4.2 X10e3 (4.0-10.5)
[2016-12-08 09:25] LABS: HEMOGLOBIN 5.8 gm/dL (12.0-16.0)
[2016-12-08 09:34] LABS: ALBUMIN SERUM 1.9 g/dL (3.5-5.0); BILIRUBIN,TOTAL 1.2 mg/dL (0.2-2.0); CALCIUM SERUM 7.1 mg/dL (8.4-10.2); CREATININE SERUM 0.6 mg/dL (0.6-1.4); GLOM FILT RATE Estimated 118.9 mL/min (>60); POTASSIUM 3.1 mmol/L (3.5-5.1); PROTEIN TOTAL SERUM 5.5 g/dL (6.0-8.3)
[2016-12-08 09:42] LABS: THYROID STIMULATING HORMONE 0.36 uIU/ml (0.34-5.60)
[2016-12-08 09:49] LABS: FREE THYROXIN (T4) 0.83 ng/dL (0.58-1.64)
[2016-12-08 19:24] LABS: HEMATOCRIT 27.3 % (35.0-45.0); HEMOGLOBIN 8.6 gm/dL (12.0-16.0)
[2016-12-09 10:09] LABS: HEMATOCRIT 24.3 % (35.0-45.0); HEMOGLOBIN 7.8 gm/dL (12.0-16.0); MEAN CELL VOLUME 91.3 FL (83-96); MEAN CORPUSCULAR HEMOGLOBIN 29.2 PG (28-34); RED BLOOD COUNT 2.66 X10e (3.90-5.30); RED CELL DISTRIBUTION WIDTH 17.4 % (11.0-15.5); WHITE BLOOD COUNT 4.6 X10e3 (4.0-10.5)
[2016-12-09 11:10] LABS: CALCIUM SERUM 7.3 mg/dL (8.4-10.2); CREATININE SERUM 0.5 mg/dL (0.6-1.4); GLOM FILT RATE Estimated 126.3 mL/min (>60); POTASSIUM 3.2 mmol/L (3.5-5.1)
[2016-12-10 06:24] LABS: HEMATOCRIT 27.9 % (35.0-45.0); HEMOGLOBIN 8.9 gm/dL (12.0-16.0); MEAN CELL VOLUME 91.5 FL (83-96); MEAN CORPUSCULAR HEMOGLOBIN 29.2 PG (28-34); MEAN CORPUSCULAR HGB CONC 31.9 g/dL (30-36); MEAN PLATELET VOLUME 9.1 FL (6.5-11.5); RED BLOOD COUNT 3.05 X10e (3.90-5.30); RED CELL DISTRIBUTION WIDTH 17.7 % (11.0-15.5); WHITE BLOOD COUNT 6.8 X10e3 (4.0-10.5)
[2016-12-10 07:09] LABS: CALCIUM SERUM 7.5 mg/dL (8.4-10.2); CARBON DIOXIDE 26 mmol/L (22-31); CHLORIDE 108 mmol/L (100-111); CREATININE SERUM 0.6 mg/dL (0.6-1.4); GLOM FILT RATE Estimated 118.9 mL/min (>60); GLUCOSE FASTING 118 mg/dL (70-110); POTASSIUM 3.5 mmol/L (3.5-5.1); SODIUM 138 mmol/L (135-145)
[2016-12-10 07:10] LABS: BLOOD UREA NITROGEN <5 mg/dL (9-23); BUN/CREATININE RATIO 8.33
[2016-12-10] MEDS ORDERED: LORAZEPAM1 MG PO (14:01)
[2017-05-01] MEDS ORDERED: AMOXICILLIN875 MG PO (17:31)
[2017-05-01] MEDS ORDERED: PATIENT'S PHARMACY (17:31)
[2017-05-01] MEDS ORDERED: LASIX20 MG PO ×2 (17:32→22:48)
[2017-05-01] MEDS ORDERED: ALDACTONE PO (17:32)
[2017-05-01] MEDS ORDERED: WELLBUTRIN100 MG PO (17:32)
[2017-05-01] MEDS ORDERED: BENTYL20 MG PO (22:40)
[2017-05-01] MEDS ORDERED: COMPAZINE10 M2 PO (22:42)
[2017-05-01] MEDS ORDERED: MULTI VITAMIN1 EACH PO (22:43)
[2017-05-01] MEDS ORDERED: VITAMINE B-1100 MG PO (22:43)
[2017-05-01] MEDS ORDERED: PRILOSEC PO (22:43)
[2017-05-01] MEDS ORDERED: OXYCODONE HCL10 MG PO (22:44)
[2017-05-01] MEDS ORDERED: POTASSIUM CHLO20 ME1 PO (22:45)
[2017-05-01] MEDS ORDERED: TESSALON PERLE100 M1 PO (22:45)
[2017-05-01] MEDS ORDERED: LACTULOSE10 GM/15 M PO (22:46)
[2017-05-01] MEDS ORDERED: DESYREL50 MG PO (22:46)
[2017-05-01] MEDS ORDERED: CITALOPRAM HBR40 MG PO (22:47)
[2017-05-01] MEDS ORDERED: DEXAMETHASONE4 MG PO (22:47)
[2017-05-01] MEDS ORDERED: LASIX PO (22:47)
[2017-05-01] MEDS ORDERED: ATIVAN2 MG PO (22:49)
[2017-05-01] MEDS ORDERED: SPIRONOLACTONE100 MG PO (22:50)
== END 2016-12-10 18:07 | disposition home or self-care (01) | DRG 432 ==
LOC: CED 12:48 → CEDOF 13:09 → C5C 17:12
PROVIDERS: Emergency Medicine; Family Medicine; Internal Medicine
PROC: 30233N1 Transfusion of Nonautologous Red Blood Cells into Peripheral Vein, Percutaneous Approach (ICD-10-PCS; 2016-12-08)
PROC: 0W9G3ZZ Drainage of Peritoneal Cavity, Percutaneous Approach (ICD-10-PCS; principal; 2016-12-09)
DX: K70.31 Alcoholic cirrhosis of liver with ascites (principal); I85.11 Secondary esophageal varices with bleeding; K92.0 Hematemesis; D61.818 Other pancytopenia; K85.90 Acute pancreatitis without necrosis or infection, unspecified; D62 Acute posthemorrhagic anemia; K86.1 Other chronic pancreatitis; D69.6 Thrombocytopenia, unspecified; F10.10 Alcohol abuse, uncomplicated; K31.9 Disease of stomach and duodenum, unspecified; G89.4 Chronic pain syndrome; Z51.5 Encounter for palliative care; D63.8 Anemia in other chronic diseases classified elsewhere; R62.7 Adult failure to thrive; F17.210 Nicotine dependence, cigarettes, uncomplicated; B19.20 Unspecified viral hepatitis C without hepatic coma
CPT/HCPCS: 74176; 80048; 80053; 80076; 80307; 81003; 82947; 83690; 84439; 84443; 84703; 85014; 85018; 85025; 85027; 85610; 85730; 86850; 86900; 86901; 86923; 87086; 93005; 99291; C9113; G0480; J1170; J2060; J2354; J2405; J3411; J7042; P9016

== ENCOUNTER 2016-12-13 16:43 | Emergency (ER) | payer OTHER ==
--- NOTE | ~2016-12-13 | EKG ---
PATIENT: GUCCI LAW UNIT #: [id number] Ventricular Rate: 107 BPM Atrial Rate: 107 BPM P-R Interval: 146 ms QRS Duration: 86 ms Q-T Interval: 362 ms QTC Calculation(Bezet): 483 ms P [place]: 37 degrees Calculated R [place]: 28 degrees Calculated T [place]: 10 degrees Diagnosis Line: Sinus tachycardia Diagnosis Line: Otherwise normal ECG Diagnosis Line: When compared with ECG of 08-DEC-2016 18:16, Diagnosis Line: No significant change was found Diagnosis Line: Confirmed by DONNELL LOVELL MD ([id number]) on 12/15/2016 Diagnosis Line: 4:04:10 PM INTERPRETING MD: NAS MARIA
[~2016-12-13 16:43] MED LIST changes: +LORAZEPAM1 MG PO
[2016-12-13 17:02] LABS: BASOPHIL% 0.5 % (0-2.5); EOSINOPHIL# 0.2 X10e3 (0-0.7); EOSINOPHIL% 2.4 % (0.0-7.0); HEMATOCRIT 28.6 % (35.0-45.0); HEMOGLOBIN 9.2 gm/dL (12.0-16.0); LYMPHOCYTE# 1.6 X10e3 (1.0-3.5); LYMPHOCYTE% 21.4 % (17.0-45.0); MEAN CELL VOLUME 91.9 FL (83-96); MEAN CORPUSCULAR HEMOGLOBIN 29.5 PG (28-34); MEAN PLATELET VOLUME 10.3 FL (6.5-11.5); MONOCYTE% 13.4 % (3.0-12.0); NEUTROPHIL# 4.7 X10e3 (1.5-7.1); NEUTROPHIL% 62.3 % (40-75); PLATELET COUNT 123 X10e3 (140-420); RED BLOOD COUNT 3.11 X10e (3.90-5.30); RED CELL DISTRIBUTION WIDTH 18.9 % (11.0-15.5); WHITE BLOOD COUNT 7.5 X10e3 (4.0-10.5)
[2016-12-13 17:04] LABS: DIFF IND NO
[2016-12-13 17:30] LABS: ALBUMIN SERUM 2.5 g/dL (3.5-5.0); ALKALINE PHOSPHATASE 165 U/L (32-92); ALT (SGPT) 33 U/L (10-40); AST (SGOT) 90 U/L (10-42); BILIRUBIN, DIRECT 0.4 mg/dL (0.0-0.2); BILIRUBIN,INDIRECT 0.7 mg/dL (0.0-0.9); BILIRUBIN,TOTAL 1.1 mg/dL (0.2-2.0); BLOOD UREA NITROGEN <5 mg/dL (9-23); BUN/CREATININE RATIO 7.14; CALCIUM SERUM 7.6 mg/dL (8.4-10.2); CARBON DIOXIDE 25 mmol/L (22-31); CHLORIDE 100 mmol/L (100-111); CREATININE SERUM 0.7 mg/dL (0.6-1.4); GLUCOSE FASTING 98 mg/dL (70-110); LIPASE 33 U/L (22-51); PROTEIN TOTAL SERUM 7.1 g/dL (6.0-8.3); SODIUM 133 mmol/L (135-145)
[2016-12-13 17:31] LABS: POTASSIUM 2.7 mmol/L (3.5-5.1)
[2016-12-13 17:32] LABS: ACETAMINOPHEN <10 ug/mL; ALCOHOL BLOOD <5 mg/dL (0)
[2017-05-01] MEDS ORDERED: AMOXICILLIN875 MG PO (17:31)
[2017-05-01] MEDS ORDERED: PATIENT'S PHARMACY (17:31)
[2017-05-01] MEDS ORDERED: ALDACTONE PO (17:32)
[2017-05-01] MEDS ORDERED: LASIX20 MG PO ×2 (17:32→22:48)
[2017-05-01] MEDS ORDERED: WELLBUTRIN100 MG PO (17:32)
[2017-05-01] MEDS ORDERED: BENTYL20 MG PO (22:40)
[2017-05-01] MEDS ORDERED: COMPAZINE10 M2 PO (22:42)
[2017-05-01] MEDS ORDERED: VITAMINE B-1100 MG PO (22:43)
[2017-05-01] MEDS ORDERED: MULTI VITAMIN1 EACH PO (22:43)
[2017-05-01] MEDS ORDERED: PRILOSEC PO (22:43)
[2017-05-01] MEDS ORDERED: OXYCODONE HCL10 MG PO (22:44)
[2017-05-01] MEDS ORDERED: POTASSIUM CHLO20 ME1 PO (22:45)
[2017-05-01] MEDS ORDERED: TESSALON PERLE100 M1 PO (22:45)
[2017-05-01] MEDS ORDERED: DESYREL50 MG PO (22:46)
[2017-05-01] MEDS ORDERED: LACTULOSE10 GM/15 M PO (22:46)
[2017-05-01] MEDS ORDERED: LASIX PO (22:47)
[2017-05-01] MEDS ORDERED: CITALOPRAM HBR40 MG PO (22:47)
[2017-05-01] MEDS ORDERED: DEXAMETHASONE4 MG PO (22:47)
[2017-05-01] MEDS ORDERED: ATIVAN2 MG PO (22:49)
[2017-05-01] MEDS ORDERED: SPIRONOLACTONE100 MG PO (22:50)
== END 2016-12-13 18:15 | disposition left against medical advice (07) ==
LOC: CED 16:43
PROVIDERS: Student in an Organized Health Care Education/Training Program
DX: T43.4X1A Poisoning by butyrophenone and thiothixene neuroleptics, accidental (unintentional), initial encounter (principal); Y92.9 Unspecified place or not applicable; Z79.899 Other long term (current) drug therapy; E87.6 Hypokalemia
CPT/HCPCS: 36415; 80048; 80076; 83690; 85025; 93005; 96374; 96375; 99284; G0480; J2405

== ENCOUNTER 2016-12-22 12:06 | Inpatient (IN) | payer OTHER, MEDICARE ==
--- NOTE | ~2016-12-22 | CT4 ---
[facility] A Service of [facility] & [facility] RADIOLOGY TEXT RESULTS PATIENT: GUCCI LAW LOCATION: [address]19 : 82 UNIT #: [id number] AGE: [address]: FANTASMA MOSCOSO MD SEX: F ORDER DR: [id number] [facility] [address] [place], [place] [address] [id number] I MR#: [id number] Acc #: [id number] NAME: GUCCI LAW. : 1980 SEX: F STUDY DATE/TIME: 12/22/2016 13:57 UNIT: [facility] ROOM: [facility] STUDY DESCRIPTION: CT Abd and Pelv Wo Cont Attending Physician: Fantasma Moscoso M.D. Ordering Physician: Erwin Li M.D. Primary Care Physician: Primary Care Physician No MEDICAL IMAGING REPORT This report is preliminary unless electronic signature is present EXAM Abdomen and pelvis CT scan without contrast HISTORY Diffuse abdominal pain onset at 05:30 this morning. GI bleeding. Bloody diarrhea. History of pancreatitis, cirrhosis, hepatitis C. COMMENT CT of the abdomen and pelvis performed without IV or oral contrast media using urinary tract stone protocol. Comparison is made to the study from 12/07/2016. This CT examination was performed with one or more of the following radiation dose reduction techniques: automatic exposure control, adjustment of mA and/or kV according to patient size, and iterative reconstruction. Lack of IV and oral contrast media limits evaluation for pathology other than urinary tract calculus disease. The lung bases are clear. There is thickening of the distal esophageal wall. This could be edema related to varices or even neoplastic disease. It is best assessed with direct visualization. Liver is small and irregular consistent with cirrhosis. There is ascites moderate in amount best appreciated around the liver and in the pelvis. Borderline splenic enlargement noted. Metallic densities in the stomach. Please correlate with history. Gallbladder is distended and there is pericholecystic fluid. This could be secondary to patient's liver disease and please exclude any concern for acute cholecystitis. It is less distended than it was previously. Pancreas unremarkable. Adrenal glands unremarkable. No intrarenal calculus or hydronephrosis. Minor vascular calcifications abdominal aorta. [facility]. [facility] A Service of [facility] & [facility] RADIOLOGY TEXT RESULTS PATIENT: GUCCI LAW LOCATION: [facility] C[facility]2-09 : 82 UNIT #: [id number] AGE: [address]: FANTASMA MOSCOSO MD SEX: F ORDER DR: CT PELVIS: The bladder is unremarkable. Fluid in the pelvis is noted. Diffuse wall thickening colon and small bowel loops could be related to the ascites/third spacing of fluid. Please correlate however for any concern for colitis in light of history of bloody diarrhea. The appendix is unremarkable. There is no bowel obstruction. There is a small fat containing periumbilical hernia. There is no free intraperitoneal air. Nonspecific mesenteric lymph nodes are present. Stranding in the mesentery again consistent with the ascites. IMPRESSION 1. Findings of cirrhosis and moderate abdominopelvic ascites. 2. No bowel obstruction. Nonspecific bowel wall thickening could be related to third spacing of fluid or alternatively could reflect some colitis/enteritis in the setting of bloody diarrhea. Please correlate further clinically. The appendix is unremarkable. There is no free air. 3. Nonspecific mesenteric lymph nodes. 4. Thickening of the wall of the distal esophagus could reflect edema, mucosal disease or even neoplastic disease. 5. The gallbladder is distended with pericholecystic fluid. This is if anything better than it was on 12/07/2016 and is nonspecific in a patient with severe liver disease. It could be related to the liver disease and please exclude any concern for acute cholecystitis. STAT * RESULT Dictated by... Brittani Lindsey M.D. THIS IS AN ELECTRONICALLY VERIFIED REPORT Brittani Lindsey M.D. at 12/23/2016 3:38 PM OMAYRA/dale TD: 12/22/2016 14:35 JOB #: [id number] MEDICAL IMAGING REPORT Page 1 of 1 COPY
--- NOTE | ~2016-12-22 | DS ---
Unit #: [id number] #: [id number] Patient: GUCCI LAW [id number] [address] [address] [id number] I MR#: [id number] NAME: GUCCI LAW. ROOM: 317 Age: 36 Sex: F Admission Date: 12/22/2016 : 1980 Discharge Date: 12/24/2016 Attending Physician: Ofelia Queen M.D. Primary Care Physician: No Primary Care Physician DISCHARGE SUMMARY REASON FOR ADMISSION Nausea, vomiting and diarrhea. HISTORY OF PRESENT ILLNESS/HOSPITAL COURSE The patient is a 36-year-old female with history of endstage cirrhosis, hepatitis C, ongoing alcohol abuse, pancytopenia, who was currently under the care of hospice at home, who presented secondary to abdominal pain worsening as well as questionable upper GI bleed and/or emesis of blood. Apparently, she had called the Hospice nurse who advised her to come to the hospital for further evaluation. While she was here, it was noted that her hemoglobin was 5.5. She received Protonix. She received packed red blood cells and transfusion, a total of 4 units. She was placed in the ICU. Consultation was placed to cyber security systems engineer, Dr. Richardson, as well as to GI specialist, Dr. Jiang. The patient's hemoglobin, otherwise, improved. She was placed on Protonix drip, as well as Sandostatin drip. Since that time, both have been discontinued. The patient was transferred out of ICU, placed on telemetry floor. Blood counts are now holding stable with a hemoglobin at 9.5. Overall, the patient's prognosis is dismal. At this point in time, the patient will be discharged home once again with hospice care. FINAL DISCHARGE DIAGNOSES 1. Endstage cirrhosis. 2. Ongoing alcohol abuse. 3. Chronic pancytopenia, secondary to alcohol abuse. 4. Thrombocytopenia. 5. Recurrent ascites. 6. Gastrointestinal blood loss, likely secondary to alcohol abuse. 7. Varices of the esophagus. 8. Thrombocytopenia in the past. 9. Chronic obstructive pulmonary disease. 10. Hepatitis C. 11. Seizure disorder. 12. Depression. 13. Anxiety. 14. Asthma. 15. History of recurrent pancreatitis. 16. Chronic narcotic dependence. FINAL DISCHARGE MEDICATIONS 1. Lactulose 10, 30 mL p.o. q.day. 2. Ativan 1 mg p.o. q.6 p.r.n., this is a home medication. 3. Bentyl 10 mg p.o. q.8 p.r.n. #15 prescription given. 4. Multivitamin daily. Unit #: [id number] #: [id number] Patient: GUCCI LAW 5. Aldactone 100 mg p.o. q.day. 6. Oxycodone 5 mg p.o. q.6 p.r.n. #15 prescription given. DISCHARGE CONDITION Stable. DISCHARGE DISPOSITION Home with Hospice. LONG-TERM PROGNOSIS Guarded/poor. LIFE EXPECTANCY Likely days to weeks. Dictated by... Adrián Ashley/jeni TD: 12/24/2016 22:30 JOB #: [id number] DISCHARGE SUMMARY Page 1 of 1 X Ofelia Queen MD X DISCHARGE SUMMARY
--- NOTE | ~2016-12-22 | CO ---
Unit #: [id number] #: [id number] Patient: GUCCI LAW [id number] [address] [place], [place] [address] [id number] I MR#: [id number] NAME: GUCCI LAW. ROOM: 317 Age: 36 Sex: F Admission Date: 12/22/2016 : 1980 Attending Physician: Ofelia Queen M.D. Primary Care Physician: Primary Care Physician No CONSULTATION REPORT REASON FOR CONSULTATION GI bleed. HISTORY OF PRESENT ILLNESS The patient is a 36-year-old female, who is well known to our practice with history of alcohol-induced cirrhosis with history of esophageal varices, chronic pancreatitis, thrombocytopenia, ascites. The patient continues to drink alcohol, and yesterday morning she woke vomiting bright red blood and subsequently came to the emergency department, was found to have hemoglobin of 5.5. A CT showed nonspecific bowel wall thickening. She continues to complain of upper abdominal pain; however, denies any nausea, vomiting, or diarrhea at this time. PAST MEDICAL HISTORY Notable for esophageal varices, cirrhosis, chronic pancreatitis, chronic gastropathy, thrombocytopenia secondary to cirrhosis, multiple EGDs in the past as well as an ERCP with stent placement and removal, previous wrist surgery, and oral surgery. SOCIAL HISTORY The patient continues to drink two pint of gin daily. Smokes cigarettes. Denies any illicit drugs. FAMILY HISTORY Notable for father with malignancy and mother with COPD. ALLERGIES None known. HOME MEDICATIONS Ativan, Aldactone, lactulose, hydrocodone, omeprazole, Compazine, clonidine, Bentyl, Lasix. REVIEW OF SYSTEMS A complete 10-point review of systems was completed and negative except as mentioned in the HPI. PHYSICAL EXAMINATION GENERAL: The patient is very pleasant 36-year-old female, who is in no acute distress at this time. VITAL SIGNS: Temperature is 98.4, pulse is 97, respirations 17, blood pressure is 104/79. HEENT: PERRLA. NECK: Supple. Unit #: [id number] #: [id number] Patient: GUCCI LAW CARDIAC: S1, S2. LUNGS: Clear to auscultation. ABDOMEN: Soft, rounded. Mild upper abdominal tenderness. Positive bowel sounds. NEUROLOGIC: The patient is alert, awake, and oriented x3. DIAGNOSTIC STUDIES IMAGING STUDIES: Again CT of abdomen and pelvis did show an abdominal wall thickening which is nonspecific. LABORATORY RESULTS: Chemistry; AST and ALT are 60 and 22 respectively, alkaline phosphatase is 134. White count 10.4, hemoglobin was 9.5 today after 4 units which is appropriate and her initial hemoglobin was 5.5, hematocrit is 28.0, platelets are 97. ASSESSMENT AND PLAN 1. Anemia of acute blood loss with history of esophageal varices. Continue PPI drip. We will defer esophagogastroduodenoscopy at this time. Continue close monitoring of H and H. If any signs of acute bleeding recur, we will consider esophagogastroduodenoscopy at that time. Continue clear liquids. 2. Alcohol-induced cirrhosis with history of esophageal varices and ascites. 3. Thrombocytopenia secondary to #2. Thank you for this interesting consult. We will continue to follow along. Dictated by... Dariela Brasher A.P.R.N. for Adrián Lovell/drake TD: 12/24/2016 06:16 JOB #: [id number] CONSULTATION REPORT Page 1 of 1 X X CONSULTATION REPORT
--- NOTE | ~2016-12-22 | HP ---
Unit #: [id number] #: [id number] Patient: GUCCI LAW [id number] [address] [address] [id number] I MR#: [id number] NAME: GUCCI LAW. ROOM: [facility] Age: 36 Sex: F Admission Date: 12/22/2016 : 1980 Attending Physician: Laurie Moscoso M.D. Primary Care Physician: No Primary Care Physician HISTORY AND PHYSICAL CHIEF COMPLAINT Abdominal pain, nausea, vomiting. HISTORY OF PRESENT ILLNESS The patient is a 36-year-old female with a history of esophageal varices, cirrhosis, alcohol abuse, sepsis, chronic pancreatitis, thrombocytopenia and polysubstance abuse, who presented to the emergency room with vomiting of the blood. The patient had last alcohol, a pint of gin, last night around 8 o'clock. The patient woke up this morning at 5:30 a.m. with vomiting of blood. The patient was discharged home two weeks ago on Hospice care. For unknown reason, the Hospice nurse sent the patient to the emergency room for further evaluation. The patient also complains of abdominal pain and rectal bleeding. The patient was found to have hemoglobin of 5.[address] shows nonspecific bowel wall thickening concerning for the colitis/enteritis with a history of GI, rectal, bleed. The patient is being admitted for the above reasons. PAST MEDICAL HISTORY History of variceal bleeding, cirrhosis, chronic pancreatitis, history of esophageal varices status post banding, chronic gastropathy and thrombocytopenia secondary to cirrhosis. PAST SURGICAL HISTORY EGD, bile duct stent placement and removal, wrist surgery, oral surgery. SOCIAL HISTORY The patient lives with her stepdown. She drinks two pints of gin daily. She smokes a pack of cigarettes daily. She denies any illicit drug abuse. FAMILY HISTORY Notable for dad having brain malignancy. Mother had COPD. ALLERGIES No known drug allergies. HOME MEDICATIONS 1. Lorazepam. 2. Aldactone. 3. Lactulose. 4. Hydrocodone. 5. Omeprazole. 6. Compazine. 7. Clonidine. 8. Dicyclomine. Unit #: [id number] #: [id number] Patient: GUCCI LAW 9. Bentyl. 10. Furosemide. 11. Lactulose. PHYSICAL EXAMINATION GENERAL APPEARANCE: The patient is lying on the bed not in acute distress. VITAL SIGNS: Temperature 98.4. Pulse 112. Respiratory rate 23. Blood pressure 118/64. Sating 99% at room air. HEENT: Atraumatic, normocephalic. ENT: Pupils equal, round, reacting to light and accommodation. Extraocular movements are intact. NECK: Supple. LUNGS: Decreased air entry at the bases. HEART: Regular rate and rhythm. ABDOMEN: Positive for epigastric tenderness. EXTREMITIES: No cyanosis. No clubbing. NEUROLOGIC: The patient has resting tremors. No gross focal motor deficit. PSYCHIATRIC: Mood and affect are appropriate. DIAGNOSTIC STUDIES LABORATORY: Glucose 105, BUN 9, creatinine 0.6, sodium 139, potassium 3.8, chloride 105, bicarb 26, calcium 7, total protein 5.6, albumin 1.8, AST 72, ALT 23, alkaline phosphatase 139. Lipase 32. Lactic acid 2.6. INR 1.7. WBC 8.6, hemoglobin 5.5, hematocrit 17.3, platelets 183, neutrophils 85.6. UA shows 2+ leukocyte esterase and 5 to 10 urine RBC and urine WBC 10 to 25. IMAGING: CT of the abdomen and pelvis shows no abdominal obstruction, nonspecific bowel thickening concerning for colitis/enteritis and ascites. ASSESSMENT 1. GI bleed. 2. Sepsis. 3. UTI. 4. Colitis. PLAN Admit the patient to ICU. The patient will have a critical consult with Dr. Richardson and GI consult with Dr. Jiang for the upper endoscopy for the esophageal varices. The patient will receive two units of PRBC. We will continue with the IV antibiotics, started on Rocephin. We will add Flagyl for colitis. The patient will also be on CIWA protocol for alcohol withdrawal and continue with the Protonix drip. Further recommendations will follow as more lab results are available. Dictated by Adrián Stanton TD: 12/23/2016 07:35 JOB #: [id number] Unit #: [id number] #: [id number] Patient: GUCCI LAW HISTORY AND PHYSICAL Page 1 of 1 X X HISTORY AND PHYSICAL
--- NOTE | ~2016-12-22 | CO ---
Unit #: [id number] #: [id number] Patient: GUCCI LAW [id number] [address] [place], [place] [address] [id number] I MR#: [id number] NAME: GUCCI LAW. ROOM: [id number] Age: 36 Sex: F Admission Date: 12/22/2016 : 1980 Attending Physician: Laurie Moscoso M.D. Primary Care Physician: Primary Care Physician No CONSULTATION REPORT REASON FOR CONSULTATION Critical care management. CHIEF COMPLAINT Abdominal pain and dark stool. HISTORY OF PRESENT ILLNESS The patient is a 36-year-old female with extensive history of alcoholic liver cirrhosis, previous history of GI bleed, thrombocytopenia, chronic pancreatitis, hepatitis C, diffuse gastropathy, presents with the complaint of generalized weakness, abdominal pain, nausea and dark blood in the stools. I am seeing the patient at the bedside currently. She is complaining of abdominal pain. REVIEW OF SYSTEMS Positive for pallor, no edema, no cyanosis, no jaundice and the rest is as per the history of present illness. The rest of 12-point review of system has been reviewed and is negative. PAST MEDICAL HISTORY As described above. HOME MEDICATIONS As per MAR and has been reviewed. ALLERGIES No known drug allergies. SOCIAL HISTORY Drinks regularly and smokes one-half pack per day. Denies drug abuse. FAMILY HISTORY Brain malignancy. PHYSICAL EXAMINATION VITAL SIGNS: Temperature 98, pulse 77, respirations 12, blood pressure 130/70. NEUROLOGIC: Awake, alert, oriented. No neurologic deficits. HEENT: PERRLA. EOMI. NECK: Supple, no JVD. LUNGS: Bilateral air entry, bilateral mild rhonchi. ABDOMEN: Nontender, soft. Positive bowel sounds. EXTREMITIES: No edema. SKIN: No rashes, no ulcers. Unit #: [id number] #: [id number] Patient: GUCCI LAW LYMPHATIC: No lymphadenopathy. DIAGNOSTIC STUDIES LABORATORY: INR 1.7. Hemoglobin 5.5. IMAGING: Reviewed. ASSESSMENT AND PLAN 1. Acute gastrointestinal bleed. 2. Acute blood loss anemia. 3. History of alcohol use. 4. Thrombocytopenia. 5. Cirrhotic hepatitis C. 6. Chronic obstructive pulmonary disease. PLAN 1. Admit patient. 2. Start on Protonix. 3. Will continue IV hydration. 4. Continue oxygen, bronchodilator. 5. May need CIWA protocol as well. 6. We will continue to monitor closely. 7. Monitor her hemoglobin and hematocrit. 8. Gastroenterology consultation. 9. Transfuse PRBC. 10. Please see orders for detailed plan. 11. Will also give 1 unit of FFP. Dictated by... Adriná Calhoun/rafael TD: 12/22/2016 17:51 JOB #: [id number] CONSULTATION REPORT Page 1 of 1 X Keisha Richardson MD X CONSULTATION REPORT
[2016-12-22 13:44] LABS: INR 1.7; PARTIAL THROMBOPLASTIN TIME 38.7 SECONDS (23.5-31.3); PROTHROMBIN TIME (PATIENT) 17.8 SECONDS (9.6-11.5)
[2016-12-22 13:53] LABS: BASOPHIL% 0.3 % (0-2.5); EOSINOPHIL% 0.3 % (0.0-7.0); HEMATOCRIT 17.3 % (35.0-45.0); LYMPHOCYTE# 0.8 X10e3 (1.0-3.5); LYMPHOCYTE% 8.8 % (17.0-45.0); MEAN CELL VOLUME 90.2 FL (83-96); MEAN CORPUSCULAR HEMOGLOBIN 28.8 PG (28-34); MEAN CORPUSCULAR HGB CONC 31.9 g/dL (30-36); MEAN PLATELET VOLUME 9.4 FL (6.5-11.5); MONOCYTE# 0.4 X10e3 (0-1.0); NEUTROPHIL# 7.4 X10e3 (1.5-7.1); NEUTROPHIL% 85.6 % (40-75); PLATELET COUNT 103 X10e3 (140-420); RED BLOOD COUNT 1.92 X10e (3.90-5.30); RED CELL DISTRIBUTION WIDTH 19.5 % (11.0-15.5); WHITE BLOOD COUNT 8.6 X10e3 (4.0-10.5)
[2016-12-22 13:55] LABS: ALBUMIN SERUM 1.8 g/dL (3.5-5.0); BILIRUBIN, DIRECT 0.3 mg/dL (0.0-0.2); BILIRUBIN,INDIRECT 0.7 mg/dL (0.0-0.9); CREATININE SERUM 0.6 mg/dL (0.6-1.4); GLOM FILT RATE Estimated 118.9 mL/min (>60); POTASSIUM 3.8 mmol/L (3.5-5.1); PROTEIN TOTAL SERUM 5.6 g/dL (6.0-8.3)
[2016-12-22 13:58] LABS: DIFF IND YES; HEMOGLOBIN 5.5 gm/dL (12.0-16.0)
[2016-12-22 14:02] LABS: URINE SOURCE CLEAN CATCH
[2016-12-22 14:13] LABS: PLATELET ESTIMATE NORMAL (NORMAL)
[2016-12-22 14:14] LABS: ANISOCYTOSIS MOD
[2016-12-22 14:16] LABS: URINE APPEARANCE CLEAR; URINE BILIRUBIN NEG (NEG); URINE BLOOD NEG (NEG); URINE COLOR YELLOW; URINE GLUCOSE NEG (NEG); URINE KETONE NEG (NEG); URINE LEUKOCYTE ESTERASE 2+ (NEG); URINE NITRATE NEG (NEG); URINE PH 6.5 (5-8); URINE PROTEIN NEG (NEG); URINE SPECIFIC GRAVITY 1.021 (1.003-1.035)
[2016-12-22 14:18] LABS: CULTURE INDICATED? YES; URINE BACTERIA AUWI NEG (NEGATIVE); URINE SQUAMOUS EPITHELIAL CELL MOD /[HPF]
[2016-12-22] MEDS ORDERED: LORAZEPAM1 MG PO (15:23)
[2016-12-22] MEDS ORDERED: LACTULOSE10 GM/15 M PO (15:24)
[2016-12-22] MEDS ORDERED: ALDACTONE100 MG PO (15:24)
[2016-12-22 20:23] LABS: HEMATOCRIT 23.4 % (35.0-45.0); HEMOGLOBIN 7.7 gm/dL (12.0-16.0)
[2016-12-22 20:31] LABS: AMPHETAMINE NEG (NEG); BARBITURATES NEG (NEG); BENZODIAZEPINES POS (NEG); COCAINE NEG (NEG); MARIJUANA POS (NEG); OPIATES POS (NEG); TRICYCLIC ANTIDEPRESSANTS NEG (NEG); U METHADONE NEG (NEG)
[2016-12-22 20:39] LABS: THYROID STIMULATING HORMONE 1.47 uIU/ml (0.34-5.60)
[2016-12-22 20:46] LABS: FREE THYROXIN (T4) 1.02 ng/dL (0.58-1.64)
[2016-12-22 20:47] LABS: ALBUMIN SERUM 1.9 g/dL (3.5-5.0); BILIRUBIN,TOTAL 1.1 mg/dL (0.2-2.0); CALCIUM SERUM 7.3 mg/dL (8.4-10.2); CREATININE SERUM 0.5 mg/dL (0.6-1.4); GLOM FILT RATE Estimated 126.3 mL/min (>60); POTASSIUM 3.9 mmol/L (3.5-5.1); PROTEIN TOTAL SERUM 5.5 g/dL (6.0-8.3)
[2016-12-23 00:45] LABS: HEMATOCRIT 21.5 % (35.0-45.0)
[2016-12-23 08:13] LABS: BASOPHIL% 0.4 % (0-2.5); EOSINOPHIL# 0.2 X10e3 (0-0.7); LYMPHOCYTE# 1.8 X10e3 (1.0-3.5); LYMPHOCYTE% 16.9 % (17.0-45.0); MEAN CORPUSCULAR HEMOGLOBIN 29.3 PG (28-34); MEAN CORPUSCULAR HGB CONC 33.9 g/dL (30-36); MEAN PLATELET VOLUME 10.1 FL (6.5-11.5); MONOCYTE# 0.7 X10e3 (0-1.0); MONOCYTE% 6.4 % (3.0-12.0); NEUTROPHIL# 7.7 X10e3 (1.5-7.1); NEUTROPHIL% 74.3 % (40-75); RED BLOOD COUNT 3.24 X10e (3.90-5.30); WHITE BLOOD COUNT 10.4 X10e3 (4.0-10.5)
[2016-12-23 08:31] LABS: BUN/CREATININE RATIO 12.85; CALCIUM SERUM 7.8 mg/dL (8.4-10.2); CREATININE SERUM 0.7 mg/dL (0.6-1.4); POTASSIUM 3.7 mmol/L (3.5-5.1)
[2016-12-23 09:01] LABS: HEMOGLOBIN 9.5 gm/dL (12.0-16.0); MEAN CELL VOLUME 86.3 FL (83-96)
[2016-12-23 09:02] LABS: DIFF IND YES; PLATELET COUNT 97 X10e3 (140-420)
[2016-12-23 09:07] LABS: PLATELET ESTIMATE DECREASED (NORMAL)
[2016-12-23 09:08] LABS: ANISOCYTOSIS SL
[2016-12-23 12:25] LABS: HEMATOCRIT 28.5 % (35.0-45.0); HEMOGLOBIN 9.7 gm/dL (12.0-16.0)
[2016-12-23 16:35] LABS: HEMOGLOBIN 10.6 gm/dL (12.0-16.0)
[2016-12-23 20:09] LABS: HEMATOCRIT 30.1 % (35.0-45.0)
[2016-12-24 01:22] LABS: HEMATOCRIT 27.2 % (35.0-45.0); HEMOGLOBIN 9.1 gm/dL (12.0-16.0)
[2016-12-24 04:15] LABS: BASOPHIL# 0.1 X10e3 (0-0.3); EOSINOPHIL# 0.3 X10e3 (0-0.7); EOSINOPHIL% 3.7 % (0.0-7.0); HEMATOCRIT 28.8 % (35.0-45.0); HEMOGLOBIN 9.6 gm/dL (12.0-16.0); LYMPHOCYTE# 1.3 X10e3 (1.0-3.5); MEAN CELL VOLUME 87.6 FL (83-96); MEAN CORPUSCULAR HGB CONC 33.1 g/dL (30-36); MEAN PLATELET VOLUME 9.2 FL (6.5-11.5); MONOCYTE# 0.5 X10e3 (0-1.0); NEUTROPHIL# 5.9 X10e3 (1.5-7.1); NEUTROPHIL% 73.3 % (40-75); PLATELET COUNT 85 X10e3 (140-420); RED BLOOD COUNT 3.29 X10e (3.90-5.30); RED CELL DISTRIBUTION WIDTH 16.6 % (11.0-15.5)
[2016-12-24 04:16] LABS: DIFF IND NO
[2016-12-24 04:50] LABS: ALBUMIN SERUM 2.2 g/dL (3.5-5.0); BILIRUBIN,TOTAL 1.2 mg/dL (0.2-2.0); BUN/CREATININE RATIO 7.14; CALCIUM SERUM 7.9 mg/dL (8.4-10.2); CREATININE SERUM 0.7 mg/dL (0.6-1.4); POTASSIUM 3.6 mmol/L (3.5-5.1)
[2016-12-24 08:45] LABS: HEMATOCRIT 27.6 % (35.0-45.0); HEMOGLOBIN 9.1 gm/dL (12.0-16.0)
[2016-12-24 12:38] LABS: HEMOGLOBIN 10.2 gm/dL (12.0-16.0)
[2016-12-24] MEDS ORDERED: BENTYL10 MG PO (15:44)
[2016-12-24] MEDS ORDERED: OXYCODONE15 M1 PO (15:46)
[2016-12-24] MEDS ORDERED: MULTIVITAMINS1 EAC3 PO (15:46)
[2017-05-01] MEDS ORDERED: AMOXICILLIN875 MG PO (17:31)
[2017-05-01] MEDS ORDERED: PATIENT'S PHARMACY (17:31)
[2017-05-01] MEDS ORDERED: WELLBUTRIN100 MG PO (17:32)
[2017-05-01] MEDS ORDERED: LASIX20 MG PO ×2 (17:32→22:48)
[2017-05-01] MEDS ORDERED: ALDACTONE PO (17:32)
[2017-05-01] MEDS ORDERED: BENTYL20 MG PO (22:40)
[2017-05-01] MEDS ORDERED: COMPAZINE10 M2 PO (22:42)
[2017-05-01] MEDS ORDERED: VITAMINE B-1100 MG PO (22:43)
[2017-05-01] MEDS ORDERED: PRILOSEC PO (22:43)
[2017-05-01] MEDS ORDERED: MULTI VITAMIN1 EACH PO (22:43)
[2017-05-01] MEDS ORDERED: OXYCODONE HCL10 MG PO (22:44)
[2017-05-01] MEDS ORDERED: TESSALON PERLE100 M1 PO (22:45)
[2017-05-01] MEDS ORDERED: POTASSIUM CHLO20 ME1 PO (22:45)
[2017-05-01] MEDS ORDERED: DESYREL50 MG PO (22:46)
[2017-05-01] MEDS ORDERED: LACTULOSE10 GM/15 M PO (22:46)
[2017-05-01] MEDS ORDERED: DEXAMETHASONE4 MG PO (22:47)
[2017-05-01] MEDS ORDERED: CITALOPRAM HBR40 MG PO (22:47)
[2017-05-01] MEDS ORDERED: LASIX PO (22:47)
[2017-05-01] MEDS ORDERED: ATIVAN2 MG PO (22:49)
[2017-05-01] MEDS ORDERED: SPIRONOLACTONE100 MG PO (22:50)
== END 2016-12-24 16:10 | disposition home or self-care (01) | DRG 378 ==
LOC: CED 12:06 → C3A PCU 14:50 → CEDOF 14:50 → CED 15:13 → CEDOF 23:57 → CICCU2 23:57 → C3A PCU 12-23 15:46 → CICCU2 12-23 15:46 → C3A PCU 12-23 15:46
PROVIDERS: Emergency Medicine; Internal Medicine
PROC: 30233N1 Transfusion of Nonautologous Red Blood Cells into Peripheral Vein, Percutaneous Approach (ICD-10-PCS; principal; 2016-12-22)
DX: K92.2 Gastrointestinal hemorrhage, unspecified (principal); D61.818 Other pancytopenia; D69.59 Other secondary thrombocytopenia; F11.20 Opioid dependence, uncomplicated; N39.0 Urinary tract infection, site not specified; D62 Acute posthemorrhagic anemia; K70.31 Alcoholic cirrhosis of liver with ascites; B19.20 Unspecified viral hepatitis C without hepatic coma; F10.10 Alcohol abuse, uncomplicated; I85.10 Secondary esophageal varices without bleeding; J44.9 Chronic obstructive pulmonary disease, unspecified; G40.909 Epilepsy, unspecified, not intractable, without status epilepticus; F32.9 Major depressive disorder, single episode, unspecified; F41.9 Anxiety disorder, unspecified; J45.909 Unspecified asthma, uncomplicated; F17.210 Nicotine dependence, cigarettes, uncomplicated; K52.9 Noninfective gastroenteritis and colitis, unspecified
CPT/HCPCS: 36430; 74176; 80048; 80053; 80076; 80307; 81003; 83605; 83690; 84439; 84443; 84703; 85014; 85018; 85025; 85610; 85730; 86592; 86850; 86900; 86901; 86923; 87086; 87493; 96365; 96375; 99291; C9113; J0696; J1170; J2060; J2270; J2354; J2405; J3411; J3475; P9016

== ENCOUNTER 2017-01-29 09:36 | Inpatient (IN) | payer OTHER, MEDICARE ==
--- NOTE | ~2017-01-29 | HP ---
Unit #: [id number] #: [id number] Patient: GUCCI LAW [id number] [address] [address] [id number] I MR#: [id number] NAME: GUCCI LAW. ROOM: [facility] Age: 36 Sex: F Admission Date: 01/29/2017 : 1980 Attending Physician: Rosalva Kaur M.D. Primary Care Physician: Primary Care Physician No HISTORY AND PHYSICAL CHIEF COMPLAINT Vomiting blood. HISTORY OF PRESENT ILLNESS The patient is a 36-year-old female with past medical history of end-stage cirrhosis secondary to hepatitis C and continued alcohol abuse, esophageal varices, chronic anemia, chronic thrombocytopenia, seizure disorder, depression anxiety, recurrent pancreatitis, asthma, narcotic dependence who presented to the emergency department for evaluation of the above. Of note, the patient was hospitalized at [facility] 12/22 through 12/24/2016 for abdominal pain and questionable upper GI bleed. She has been in hospice care. She was transfused during that admission and discharged home again with hospice. Today, the patient states that she started vomiting blood about 5 a.m. She states that she has had abdominal pain in the upper abdomen that she describes as "squeezing." She states it has been constant in nature, no exacerbating or alleviating factors. She states that it is similar to when she has had a GI bleed in the past. She denies any fever. No diarrhea, no chest pain or trouble breathing. She was brought to the emergency department for further evaluation. In the emergency department, initial pulse and blood pressure were 116 and 86/57 respectively. Hemoglobin is 6.8. She was given 1 liter of normal saline as well as 80 mg of Protonix, 50 mcg of octreotide. She is currently on protonix and octreotide drips. Two units of packed red blood cells have been ordered. She is being admitted to [facility] for evaluation and further treatment. PAST MEDICAL HISTORY 1. Admission to [facility] 12/22 through 12/24/2016 for GI bleed. She was discharged home with hospice. 2. End-stage cirrhosis secondary to hepatitis C and continued alcohol abuse. 3. History of multiple hospitalizations for GI bleed secondary to esophageal varices. The most recent EGD was in October 2016 and showed grade 3 esophageal varices. She underwent banding at that time. 4. Chronic pancreatitis. 5. Chronic gastropathy. 6. Chronic thrombocytopenia secondary to cirrhosis. 7. Seizure disorder. 8. Depression anxiety. 9. Narcotic dependence. Unit #: [id number] #: [id number] Patient: GUCCI LAW 10. Asthma. PAST SURGICAL HISTORY 1. EGD. 2. Common bile duct stent placement and removal. 3. Wrist surgery. 4. Oral surgery. ALLERGIES No known allergies. HOME MEDICATIONS 1. Lasix 20 mg daily. 2. Prilosec 40 mg daily. 3. Spironolactone 100 mg daily. 4. Vitamin B daily. 5. Oxycodone q.4 h. p.r.n. 6. Celexa 20 mg daily. 7. Bentyl 20 mg q.i.d. 8. Compazine 10 mg q.6 h. p.r.n. 9. Albuterol q.6 h. p.r.n. 10. Lactulose 15 mL p.o. daily. 11. Lorazepam 1 mg q.i.d. p.r.n. SOCIAL HISTORY The patient states that she is currently living with a friend. She is a daily drinker. She states that her last drink was on the evening prior to admission and consisted of a pint of gin. She smokes a pack of cigarettes daily. She denies illicit drug use but her record review has a history of Xanax, cocaine, and opiate abuse. FAMILY HISTORY Notable for her father having brain malignancy. Her mother had COPD. REVIEW OF SYSTEMS A complete review of systems is negative except as indicated in the HPI. PHYSICAL EXAMINATION VITAL SIGNS: Temperature 97.5, pulse 116, respirations 20, blood pressure 86/57, oxygen saturation 97% on room air. GENERAL: The patient is a female who smells of alcohol and is ill appearing. HEENT: Head is atraumatic. Conjunctivae are pale. NECK: Supple. Trachea is midline. LUNGS: Clear to auscultation bilaterally with no increased work of breathing. HEART: Tachycardic in the one-teens. ABDOMEN: Soft. She is tender to palpation in the epigastric area. Bowel sounds are somewhat decreased. EXTREMITIES: Nontender with no pedal edema. NEUROLOGIC: Patient is oriented to person, place and year. She thought it was December. She is moving all extremities. PSYCHIATRIC: The patient has a flat affect. SKIN: Generally pale. DIAGNOSTIC STUDIES LABORATORY: INR 1.6. Comprehensive metabolic panel notable for sodium 132, chloride 99, glucose 126, calcium 7.3 but corrects when albumin of Unit #: [id number] #: [id number] Patient: GUCCI LAW 2.2 is accounted for, AST 89, ALT 24, alkaline phosphatase 154. Lipase 37. Complete blood count notable for hemoglobin 6.8, hematocrit 21.5, platelets 119. ASSESSMENT The patient is a 36-year-old female with: 1. Gastrointestinal bleed. The patient received 80 mg of Protonix as well as 50 mcg of octreotide. She is currently on Protonix and octreotide drips. 2. Hemorrhagic shock. The patient received 1 liter of normal saline. She is currently receiving her first unit of packed red blood cells. 3. Ztygz-zm-ezlmadl anemia. The patient's hemoglobin was 10.2 on 12/24/2016, it is 6.8 today. Two units of packed red blood cells have been ordered. 4. History of esophageal varices with the most recent banding on 10/30/2016. 5. Thrombocytopenia secondary to cirrhosis. The patient's platelet count was 85 on 12/24/2016, it is 119 today. 6. End-stage cirrhosis secondary to hepatitis C and continued alcohol abuse. 7. Hepatitis C. 8. Alcohol abuse with last drink being yesterday. 9. Seizure disorder. 10. Depression anxiety. 11. Recurrent pancreatitis. 12. Asthma. 13. Narcotic dependence. 14. Tobacco abuse. PLAN 1. Admit to ICU. 2. N.p.o. for possible endoscopy. 3. Octreotide drip at 50 mcg per hour. 4. Protonix drip at 8 mg per hour. 5. Hemoglobin and hematocrit 1 hour after transfusion and q.[address] Jiang regarding GI bleed. 7. Consult Dr. Sloan Moscoso regarding ICU admission. 8. Check ammonia level. 9. Alcohol withdrawal protocol. 10. Check magnesium level. 11. Consult Dr. Christensen regarding decisional capacity and alcohol abuse. The patient has been in hospice care. It is unclear if she truly understands what hospice care means. I had this discussion with her. She stated that she came to the hospital because she "wanted to be fixed." I stated that typically when patients are in hospice it is due to a terminal condition; in her case, end-stage cirrhosis with continued alcohol abuse. It does not seem that the patient understands the gravity of her situation. Thus, I have consulted Dr. Christensen regarding decisional capacity. 12. Repeat labs in the morning including magnesium and INR. 13. SCDs for DVT prophylaxis. Thirty-three minutes critical care time spent in the care of this patient (12:20 to 12:53 p.m.). Unit #: [id number] #: [id number] Patient: GUCCI LAW Dictated by Adrián Pena/rafael TD: 01/29/2017 19:21 JOB #: [id number] HISTORY AND PHYSICAL Page 1 of 1 X Rosalva Kaur MD X HISTORY AND PHYSICAL
--- NOTE | ~2017-01-29 | CO ---
Unit #: [id number] #: [id number] Patient: GUCCI LAW [id number] [address] [place], [place] [address] [id number] I MR#: [id number] NAME: GUCCI LAW. ROOM: [id number] Age: 36 Sex: F Admission Date: 01/29/2017 : 1980 Attending Physician: Rosalva Kaur M.D. Primary Care Physician: No Primary Care Physician Consultation Date: 01/29/2017 CONSULTATION REPORT REASON FOR CONSULT ICU management. HISTORY OF PRESENT ILLNESS This is a 36-year-old female who was well known to our service from multiple previous admissions with past medical history significant for esophageal varices, cirrhosis, alcohol abuse, sepsis, chronic pancreatitis, thrombocytopenia, and polysubstance abuse who presented to the emergency room vomiting blood. Patient had multiple admissions over the last few months for the same reason. It is mentioned in the record that patient has been under hospice care but on the other hand she is coming to the ER every time she has a problem. Patient stated to me that she wants everything to be done except chest compression and ventilator support. PAST MEDICAL HISTORY 1. Variceal bleeding. 2. Cirrhosis. 3. Chronic pancreatitis. 4. Esophageal varices. 5. Thrombocytopenia. 6. Polysubstance abuse. PAST SURGICAL HISTORY 1. Multiple EGDs. 2. Bile duct stent placement and removal. 3. Wrist surgery. 4. Oral surgery. SOCIAL HISTORY Patient lives with her friend. She drinks at least 2 pints of gin daily. She smokes a pack of cigarettes daily. FAMILY HISTORY Brain malignancy and COPD. ALLERGIES No known drug allergies. HOME MEDICATIONS 1. Lorazepam. 2. Aldactone. 3. Lactulose. 4. Hydrocodone. Unit #: [id number] #: [id number] Patient: GUCCI LAW 5. Omeprazole. 6. Clonidine. 7. Dicyclomine. REVIEW OF SYSTEMS A 12-point review of systems was obtained to our best ability and patient is complaining only of vomiting blood. PHYSICAL EXAMINATION GENERAL: The patient is in no acute distress, but she is lethargic. VITAL SIGNS: Blood pressure on presentation was in the mid 90s; however, it is 110 at this point. HEENT: Atraumatic, normocephalic. PERRLA. EOMI. NECK: Supple. No JVD. No lymphadenopathy. CHEST: Diminished on both sides. HEART: S1, S2. No murmurs, gallops, or rubs. ABDOMEN: Nontender with slight megaly. EXTREMITIES: No edema or cyanosis. SKIN: No rashes. CENTRAL NERVOUS SYSTEM: Awake, alert, oriented x3 but patient is shaking and jittery. DIAGNOSTIC STUDIES LABORATORY: Creatinine 0.7, CO2 of 23, chloride 99. White blood count 8.9, hemoglobin 6.8, platelets 119,000. ASSESSMENT 1. Upper gastrointestinal bleeding. 2. Recurrent esophageal varices, hemorrhage. 3. Acute on chronic anemia due to blood loss. 4. Alcoholism. 5. Thrombocytopenia. 6. Liver cirrhosis. 7. Malnutrition. PLAN 1. Patient will be monitored in ICU very closely. 2. Will keep patient NPO. 3. Start on Protonix, octreotide drip. 4. IV hydration as tolerated. 5. Code status discussed with the patient and she wishes to be DNI/DNR. 6. SCDs and avoid Lovenox. Dictated by... Letty Moscoso M.D. EA/brenden TD: 01/29/2017 16:07 JOB #: [id number] Unit #: [id number] #: [id number] Patient: GUCCI LAW CONSULTATION REPORT Page 1 of 1 X LETTY POOLE MD CONSULTATION REPORT
--- NOTE | ~2017-01-29 | CR72 ---
[facility] A Service of [facility] & [facility] RADIOLOGY TEXT RESULTS PATIENT: GUCCI LAW LOCATION: [facility] [address]-94 : [birth year] UNIT #: [id number] AGE: [address]: Rosalva Kaur MD SEX: F ORDER DR: [id number] [facility] [address] [place], [place] [address] [id number] MR#: [id number] Acc #: [id number] NAME: GUCCI LAW. : 1980 SEX: F STUDY DATE/TIME: 01/29/2017 10:54 UNIT: [facility] ROOM: STUDY DESCRIPTION: CR Chest Single View Portable Attending Physician: Maxwell Faulkner M.D. Ordering Physician: Maxwell Faulkner M.D. Primary Care Physician: No Primary Care Physician MEDICAL IMAGING REPORT This report is preliminary unless electronic signature is present EXAM Portable chest, 01/29/2017, 1054 hours, [facility]. HISTORY 36-year-old female patient status post central line placement today. History of asthma, hepatitis C. COMPARISON Chest, 11/20/2016. FINDINGS AP upright portable chest demonstrates normal cardiac size and configuration. Hilar structures and mediastinal contours are preserved. Right approach central line is well positioned with the tip terminating lower third SVC. Bilateral lungs are expanded and clear. IMPRESSION Well-positioned right approach central line tip lower third SVC. No acute chest finding. Dictated by... Ishan Murphy M.D. THIS IS AN ELECTRONICALLY VERIFIED REPORT Ishan Murphy M.D. at 01/29/2017 3:17 PM REGINA/willie TD: 01/29/2017 13:20 JOB #: [id number] MEDICAL IMAGING REPORT Page 1 of 1 COPY
[~2017-01-29 09:36] MED LIST changes: +ALDACTONE100 MG PO; +BENTYL10 MG PO; +LACTULOSE10 GM/15 M PO; +MULTIVITAMINS1 EAC3 PO; +OXYCODONE15 M1 PO
[2017-01-29 10:23] LABS: BASOPHIL# 0.1 X10e3 (0-0.3); BASOPHIL% 1.3 % (0-2.5); EOSINOPHIL% 0.3 % (0.0-7.0); HEMATOCRIT 21.5 % (35.0-45.0); LYMPHOCYTE# 1.3 X10e3 (1.0-3.5); LYMPHOCYTE% 14.5 % (17.0-45.0); MEAN CELL VOLUME 91.6 FL (83-96); MEAN CORPUSCULAR HEMOGLOBIN 28.9 PG (28-34); MEAN CORPUSCULAR HGB CONC 31.5 g/dL (30-36); MEAN PLATELET VOLUME 9.6 FL (6.5-11.5); MONOCYTE# 0.8 X10e3 (0-1.0); MONOCYTE% 8.4 % (3.0-12.0); NEUTROPHIL# 6.7 X10e3 (1.5-7.1); NEUTROPHIL% 75.5 % (40-75); PLATELET COUNT 119 X10e3 (140-420); RED BLOOD COUNT 2.35 X10e (3.90-5.30); RED CELL DISTRIBUTION WIDTH 18.3 % (11.0-15.5); WHITE BLOOD COUNT 8.9 X10e3 (4.0-10.5)
[2017-01-29 10:26] LABS: DIFF IND YES; HEMOGLOBIN 6.8 gm/dL (12.0-16.0)
[2017-01-29 10:34] LABS: INR 1.6; PARTIAL THROMBOPLASTIN TIME 33.8 SECONDS (23.5-31.3); PROTHROMBIN TIME (PATIENT) 17.1 SECONDS (10.0-11.7)
[2017-01-29 10:39] LABS: ALBUMIN SERUM 2.2 g/dL (3.5-5.0); ANISOCYTOSIS SL; BILIRUBIN, DIRECT 0.7 mg/dL (0.0-0.2); BILIRUBIN,INDIRECT 0.9 mg/dL (0.0-0.9); BILIRUBIN,TOTAL 1.6 mg/dL (0.2-2.0); BUN/CREATININE RATIO 14.28; CALCIUM SERUM 7.3 mg/dL (8.4-10.2); CREATININE SERUM 0.7 mg/dL (0.6-1.4); PLATELET ESTIMATE DECREASED (NORMAL); POTASSIUM 4.4 mmol/L (3.5-5.1); PROTEIN TOTAL SERUM 6.4 g/dL (6.0-8.3)
[2017-01-29] MEDS ORDERED: PRILOSEC PO (11:20)
[2017-01-29] MEDS ORDERED: LASIX20 MG PO (11:20)
[2017-01-29] MEDS ORDERED: SPIRONOLACTONE50 MG PO (11:20)
[2017-01-29] MEDS ORDERED: OXYCODONE HCL10 MG PO (11:21)
[2017-01-29] MEDS ORDERED: CELEXA20 MG PO (11:21)
[2017-01-29] MEDS ORDERED: SUPER B-50 COM1 EACH PO (11:21)
[2017-01-29] MEDS ORDERED: BENTYL20 MG PO (11:21)
[2017-01-29] MEDS ORDERED: LACTULOSE10 GM/151 PO (11:22)
[2017-01-29] MEDS ORDERED: COMPAZINE10 M2 PO (11:22)
[2017-01-29] MEDS ORDERED: ALBUTEROL0.63 MG/3 INH (11:22)
[2017-01-29] MEDS ORDERED: LORAZEPAM1 MG PO (11:23)
[2017-01-29 18:15] LABS: HEMATOCRIT 25.6 % (35.0-45.0); HEMOGLOBIN 8.4 gm/dL (12.0-16.0)
[2017-05-01] MEDS ORDERED: PATIENT'S PHARMACY (17:31)
[2017-05-01] MEDS ORDERED: AMOXICILLIN875 MG PO (17:31)
[2017-05-01] MEDS ORDERED: ALDACTONE PO (17:32)
[2017-05-01] MEDS ORDERED: WELLBUTRIN100 MG PO (17:32)
[2017-05-01] MEDS ORDERED: LASIX20 MG PO ×2 (17:32→22:48)
[2017-05-01] MEDS ORDERED: BENTYL20 MG PO (22:40)
[2017-05-01] MEDS ORDERED: COMPAZINE10 M2 PO (22:42)
[2017-05-01] MEDS ORDERED: VITAMINE B-1100 MG PO (22:43)
[2017-05-01] MEDS ORDERED: MULTI VITAMIN1 EACH PO (22:43)
[2017-05-01] MEDS ORDERED: PRILOSEC PO (22:43)
[2017-05-01] MEDS ORDERED: OXYCODONE HCL10 MG PO (22:44)
[2017-05-01] MEDS ORDERED: POTASSIUM CHLO20 ME1 PO (22:45)
[2017-05-01] MEDS ORDERED: TESSALON PERLE100 M1 PO (22:45)
[2017-05-01] MEDS ORDERED: DESYREL50 MG PO (22:46)
[2017-05-01] MEDS ORDERED: LACTULOSE10 GM/15 M PO (22:46)
[2017-05-01] MEDS ORDERED: DEXAMETHASONE4 MG PO (22:47)
[2017-05-01] MEDS ORDERED: LASIX PO (22:47)
[2017-05-01] MEDS ORDERED: CITALOPRAM HBR40 MG PO (22:47)
[2017-05-01] MEDS ORDERED: ATIVAN2 MG PO (22:49)
[2017-05-01] MEDS ORDERED: SPIRONOLACTONE100 MG PO (22:50)
== END 2017-01-29 20:00 | disposition left against medical advice (07) | DRG 432 ==
LOC: CED 09:36 → CEDOF 13:21 → CICCU2 16:26
PROVIDERS: Emergency Medicine; Family Medicine
PROC: 05HM33Z Insertion of Infusion Device into Right Internal Jugular Vein, Percutaneous Approach (ICD-10-PCS; principal; 2017-01-29)
PROC: B543ZZA Ultrasonography of Right Jugular Veins, Guidance (ICD-10-PCS; 2017-01-29)
PROC: 30243N1 Transfusion of Nonautologous Red Blood Cells into Central Vein, Percutaneous Approach (ICD-10-PCS; 2017-01-29)
DX: K70.30 Alcoholic cirrhosis of liver without ascites (principal); I85.11 Secondary esophageal varices with bleeding; R57.8 Other shock; E46 Unspecified protein-calorie malnutrition; D69.6 Thrombocytopenia, unspecified; D62 Acute posthemorrhagic anemia; K86.1 Other chronic pancreatitis; F11.20 Opioid dependence, uncomplicated; Z68.22 Body mass index [BMI] 22.0-22.9, adult; F10.20 Alcohol dependence, uncomplicated; B19.20 Unspecified viral hepatitis C without hepatic coma; G40.909 Epilepsy, unspecified, not intractable, without status epilepticus; F32.9 Major depressive disorder, single episode, unspecified; F41.9 Anxiety disorder, unspecified; J45.909 Unspecified asthma, uncomplicated; Z51.5 Encounter for palliative care; F17.210 Nicotine dependence, cigarettes, uncomplicated; Z80.8 Family history of malignant neoplasm of other organs or systems; Z83.6 Family history of other diseases of the respiratory system
CPT/HCPCS: 36415; 71010; 80048; 80076; 82140; 83690; 83735; 85014; 85018; 85025; 85610; 85730; 86850; 86900; 86901; 86923; 96361; 96374; 99285; C9113; J1885; J2354; J2405; J3411; J3475; J7042; P9016